=== PATIENT | female | born 1965 | race Caucasian/White ===

== ENCOUNTER → 2018-08-16 15:43 | Outpatient (CLI) | payer BC, SELFPAY ==
--- NOTE | 2018-08-16 15:49 | MM_ITS ---
MM Dig screening mamm BI w/CAD ORDERING PHYSICIAN : Artis Estrada MD PATIENT AGE: 53 years GENDER: Female COMPARISON: July 2016, July 2017, July 2015 & . INDICATION: ITS.REASON: SCREENING no hormones no new complaints Family history. Mother with breast cancer age 60. Maternal aunt and paternal aunt age 60 with breast cancer TECHNIQUE: Standard CC and MLO images were obtained. R2 CAD reviewed. FINDINGS: Dense breast pattern bilaterally-decreases sensitivity of mammography. Ultrasound can be useful compliment or augment mammography in breast of increased density.. RIGHT BREAST: Focal slight denser area noted towards upper-outer quadrant, most likely is due to summation shadow.... This area however would benefit from spot view and ultrasound to further evaluate, particularly in view of the patient's positive family history LEFT BREAST: A stable dense appearance to the breast with no new areas of concern follow-up in one year adequate on left IMPRESSION: ...... 1 Right Breast. To Be cautious suggest Additional spot views and ultrasound upper-outer quadrant right breast.. Slight asymmetric density here by far most likely merely summation shadow but would benefit to further evaluate to be cautious,-particularly in view of positive family history 2. Stable LEFT mammogram follow-up in one year BI-RADS Category: 0 Need Additional Imaging Evaluation RECOMMENDED FOLLOW-UP: IMM - IMMEDIATE FOLLOW-UP RECOMMENDED Right breast spot views and ultrasound (A letter has been sent to the patient regarding results of the study.)
== END ==
PROVIDERS: PCP Family Medicine; Visit Provider Family Medicine
DX: Z12.31 Encounter for screening mammogram for malignant neoplasm of breast (principal)
CPT/HCPCS: 77067

== ENCOUNTER → 2018-09-25 14:11 | Outpatient (CLI) | payer BC, SELFPAY ==
--- NOTE | 2018-09-25 14:19 | MM_ITS ---
MM Dig mamm DX unilat RT CAD, US breast RT complete INDICATION: Follow-up abnormal mammogram ORDERING PHYSICIAN: Artis Estrada MD PATIENT AGE: 53 years COMPARISON: 08/16/2018, 08/07/2017 TECHNIQUE: Problem-solving views of the right breast along with right breast ultrasound FINDINGS: There is dense fibroglandular tissue which decreases sensitivity of mammography. The asymmetric density noted on the screening mammogram is once again noted but no discrete mass is apparent. No malignant appearing calcifications or malignant appearing mass. Right breast ultrasound: There is an 11 x 8 mm cyst in the outer aspect of the right breast at 10:00. An additional 5 mm cyst is present at this region as well. These could be the cause of the asymmetric density on the mammogram. IMPRESSION: There are 2 cysts in the outer aspect of the right breast at 10:00 which may be causing the mammographic asymmetry. No malignant appearing mass is evident. Suggest 6 month mammographic and sonographic follow-up due to the asymmetry and dense breast tissue BI-RADS Category: 3 Probably Benign Finding Short Term Follow-up RECOMMENDED FOLLOW-UP: 6M - 6 MONTH FOLLOW-UP (A letter has been sent to the patient regarding results of the study.)
== END ==
PROVIDERS: PCP Family Medicine; Visit Provider Family Medicine
DX: R92.8 Other abnormal and inconclusive findings on diagnostic imaging of breast (principal)
CPT/HCPCS: 76641; 77065

== ENCOUNTER → 2019-03-13 12:39 | Outpatient (CLI) | payer BC, SELFPAY ==
--- NOTE | 2019-03-13 12:44 | MM_ITS ---
MM Dig mamm DX unilat RT CAD COMPARISON: Digital right mammogram with CAD 09/25/2018 INDICATION: 6 month follow-up of possible asymmetric density TECHNIQUE: Standard MLO and CC views were obtained along with spot compression MLO and CC views and exaggerated CC view FINDINGS: Prominent heterogenic fibroglandular densities are seen throughout the breast. The possible asymmetric density seen on the previous study is less prominent on today's study in this lady who has a rather dense heterogenic parenchyma. There is no persistent or suspicious asymmetric density seen at this time. Ultrasound performed the same date showed 2 benign-appearing cyst similar to the ultrasound in September. IMPRESSION: Stable exam with heterogenic breast density and no suspicious lesion seen recommend the patient return to normal yearly screening BI-RADS Category: 1 Negative RECOMMENDED FOLLOW-UP: 6M - 6 MONTH FOLLOW-UP to return to normal yearly schedule (A letter has been sent to the patient regarding results of the study.)
--- NOTE | 2019-03-13 14:00 | US_ITS ---
US breast RT complete COMPARISON: Ultrasound right breast 09/25/2018 HISTORY: Follow-up benign-appearing cystic lesion seen on previous ultrasound exam TECHNIQUE: Targeted ultrasound survey of the breast FINDINGS: Again noted is the somewhat oval hypoechoic lesion at the 10:00 position measuring 1.1 x 0.3 x 0.6 cm. There is a second similar-appearing cystic lesion at the 10:00 position measuring 0.6 x 0.3 0.6 semiurgent. The remainder of the breast parenchyma shows rather heterogenic echogenicity. There are 2 normal-appearing nodes in the axilla. IMPRESSION: 2 benign-appearing cystic lesions 10:00 position and no additional evaluation is indicated and recommend patient continued yearly screening mammography.
== END ==
PROVIDERS: PCP Family Medicine; Visit Provider Family Medicine
DX: R92.8 Other abnormal and inconclusive findings on diagnostic imaging of breast (principal)
CPT/HCPCS: 19285; 76641; 77065

== ENCOUNTER → 2019-06-12 13:34 | Outpatient (CLI) | payer BC, SELFPAY ==
--- NOTE | 2019-06-12 13:36 | CA_ITS ---
APPROVED REPORT EXAM: Comprehensive 2D, Doppler, and color-flow Echocardiogram Tool Maker: Alee Ardon CRT Ht: 5 ft 8 in Wt: 145lbs BSA: 1.78 BP: 128/68 mmHg Indications: Pulmonary Hypertension, Mitral Valve Prolapse, Palpitations, Hyperlipidemia, Hypertension/HDD 2D Dimensions LVOT 1.90 cm (M/F) 1.5-2.5 M-Mode Dimensions RVDd 2.80 cm (0.9-2.6) LA Diam 3.00 cm (1.9-4.0) LVDd 4.50 cm (3.5-5.7) Ao Diam 2.90 cm (2.0-3.7) LVDs 3.20 cm (3.5-5.7) AV Cusp 1.80 cm (1.5-2.6) IVSd 0.80 cm (0.6-1.1) PWd 0.60 cm (0.6-1.1) EF (Teich) 55.60% FS 28.90% EDV (Teich) 92.40 mL ESV (Teich) 41.00 mL LV Diastology E/A Ratio 1.10 MED E' 9.36 (< 7 cm/sec) E'/MED E' Ratio 10.50 (>14) LAT E' 12.70 (<10 cm/sec) E/LAT E' Ratio 7.70 (>14) Aortic Valve AoV Peak Cornelio. 159.00 (50-130 cm/s) AO Peak GR. 10.00 mmHg Mitral Valve MV E Max Cornelio. 98.20 (40-130 cm/s) MV A Velocity 85.90 (40-130 cm/s) E/A Ratio 1.10 Pulmonary Valve PA Accel Time 158.00 (>120 msec) Tricuspid Valve TR P. Velocity 301.00 cm/s RAP Estimate 10.00 mmHg RVSP 46.00 mmHg Left Ventricle Left atrium is mildly enlarged, left ventricle is normal size, mild concentric left ventricular hypertrophy, visually estimated ejection fraction 50% with no regional wall motion abnormality, grade 1 diastolic dysfunction seen without tissue Doppler evidence of raise left atrial pressure. Right Ventricle Right atrium and right ventricular normal size and contractility. Aortic Valve Aortic valve is minimally thickened and fibrosed. There is no aortic stenosis aortic insufficiency. Mitral Valve Mitral valve leaflets are minimally thickened and fibrosed. There is no mitral stenosis, there is mild mitral regurgitation. Tricuspid Valve Tricuspid valve is grossly normal, there is mild tricuspid regurgitation, tricuspid regurgitation jet velocity is inadequate for titration of the right ventricular systolic pressure. Pulmonic Valve Pulmonic valve is poorly visualized. Great Vessels Aortic root is normal size. Pericardium No significant pericardial effusion noted. Conclusion 1. Mildly enlarged left atrium, normal left ventricular size, mild concentric left ventricular hypertrophy, visually estimated ejection fraction of 50% with no regional wall motion abnormality. Grade 1 diastolic dysfunction seen without tissue Doppler evidence of raise left atrial pressure. 2. Thickened and calcified aortic valve without aortic stenosis aortic insufficiency. 3. The mitral valve leaflets are minimally thickened and calcified, there is no mitral stenosis, there is mild mitral regurgitation. 4. Mild tricuspid regurgitation. 5. No significant pericardial effusion noted. Electronically signed by : Anselmo August, 06/14/2019 14:09:26
== END ==
PROVIDERS: PCP Family Medicine; Visit Provider Urology
DX: I27.20 Pulmonary hypertension, unspecified (principal); I34.0 Nonrheumatic mitral (valve) insufficiency; I34.1 Nonrheumatic mitral (valve) prolapse; R00.2 Palpitations
CPT/HCPCS: 93306

== ENCOUNTER → 2019-08-03 14:07 | Outpatient (CLI) | payer BC, SELFPAY | PROVIDERS: Visit Provider Family Medicine | DX: N30.00 Acute cystitis without hematuria (principal) | CPT/HCPCS: 87086 ==

== ENCOUNTER → 2019-09-03 15:48 | Outpatient (CLI) | payer BC, SELFPAY ==
--- NOTE | 2019-09-03 | MM_ITS ---
PROCEDURE: MM DIG SCREENING MAMM BI W/CAD CLINICAL INDICATION: SCREENING There is a history of breast cancer patient's mother diagnosed after menopause and the patient's maternal aunt and paternal aunt both diagnosed after menopause. COMPARISON: [facility] MM Dig screening mamm BI w/CAD from 08/16/2018 DXRT MM Dig mamm DX unilat RT CAD from 09/25/2018 DIG MAMM-DX UNI-RT from 03/13/2019 TECHNIQUE: Standard CC and MLO images were obtained. R2 CAD reviewed. FINDINGS: Prominent diffuse heterogenic fibroglandular densities are seen breast somewhat lessening the sensitivity of mammography. Findings are fairly symmetrical except for slightly increased glandular elements upper-outer quadrant right breast. There is no new or suspicious lesion in either breast and no suspicious microcalcifications. IMPRESSION: Diffusely dense parenchymal pattern with no suspicious lesions seen BI-RAD Category: 1 Negative FOLLOW-UP: 1YR 1 Year Follow-up (A letter has been sent to the patient regarding results of the study.) Dictated by: Dr. Sajan Diaz MD 09/05/2019 11:[address] Sajan Diaz MD in [place] 09/05/2019 11:22
== END ==
PROVIDERS: PCP Family Medicine; Visit Provider Family Medicine
DX: Z12.31 Encounter for screening mammogram for malignant neoplasm of breast (principal)
CPT/HCPCS: 77067

== ENCOUNTER → 2020-06-03 09:23 | Outpatient (CLI) | payer BC, SELFPAY ==
[2020-06-03 10:33] LABS: Alanine Aminotransferase 18 U/L (12-78); Albumin Level 4.3 g/dl (3.5-5.0); Alkaline Phosphatase 89 U/L (38-126); Aspartate Amino Transferase 23 U/L (14-36); Bilirubin,Direct 0.1 mg/dl (0.0-0.4); Bilirubin,Indirect 0.3 mg/dL (0.0-0.9); Bilirubin,Total 0.4 mg/dl (0.2-1.3); Bilirubin,Unconjugated 0.3 mg/dL (0.0-1.1); Chol/HDL Ratio 4.1 (1-3.5); Cholesterol 173 mg/dl (140-200); HDL Cholesterol 42 mg/dl (40-60); Total Protein,Serum 6.4 g/dl (6.3-8.2); Triglycerides 240 mg/dl (30-150); VLDL Cholesterol 48 mg/dL (0-40)
[2020-06-03 10:44] LABS: Direct LDL Cholesterol 104.05 mg/dL (100-129)
== END ==
PROVIDERS: Visit Provider Urology
DX: R00.2 Palpitations (principal); I10 Essential (primary) hypertension; I27.20 Pulmonary hypertension, unspecified; I34.0 Nonrheumatic mitral (valve) insufficiency
CPT/HCPCS: 36415; 80061; 80076

== ENCOUNTER → 2020-06-09 14:34 | Outpatient (CLI) | payer BC, SELFPAY ==
--- NOTE | 2020-06-09 14:37 | CA_ITS ---
APPROVED REPORT EXAM: Comprehensive 2D, Doppler, and color-flow Echocardiogram Senior Statistical Programmer: Concetta Bosch RVT Ht: 5 ft 8 in Wt: 148lbs BSA: 1.80 BP: 130/61 mmHg Indications: MR,PHTN,MVP,HTN,SMOKER,HLD 2D Dimensions LVOT 1.77 cm (M/F) 1.5-2.5 M-Mode Dimensions RVDd 1.75 cm (0.9-2.6) LVDd 3.58 cm (3.5-5.7) LVDs 2.36 cm (3.5-5.7) IVSd 0.89 cm (0.6-1.1) PWd 0.72 cm (0.6-1.1) EF (Teich) 64.10% FS 34.10% EDV (Teich) 53.70 mL ESV (Teich) 19.30 mL LV Diastology E/A Ratio 0.80 Mitral Valve MV A Velocity 77.00 (40-130 cm/s) Left Ventricle Left atrium is normal size, left ventricle is normal size, there is no segmental wall motion abnormality, visually estimated ejection fraction 55%. There is no concentric left ventricular hypertrophy, diastolic parameters are inconclusive. Right Ventricle Right atrium and right ventricular normal size and contractility. Aortic Valve Aortic valve is minimally thickened and fibrosed, there is no aortic stenosis or aortic insufficiency. Mitral Valve Anterior mitral leaflets are minimally thickened, there is mild prolapse of the anterior mitral leaflet, there is no mitral stenosis, there is trace mitral regurgitation. Tricuspid Valve Tricuspid valve grossly normal, there is mild tricuspid regurgitation, tricuspid regurgitation jet velocity is inadequate for calculation of the right ventricular systolic pressure. Pulmonic Valve Pulmonic valve is poorly visualized. Great Vessels Aortic root is normal size. Pericardium No significant pericardial effusion noted. Conclusion 1. Normal left ventricular size, visually estimated ejection fraction 55% with no regional wall motion abnormality, diastolic parameters are inconclusive. 2. Thickened and calcified anterior mitral leaflet with mild prolapse, there is no mitral stenosis, there is trace mitral regurgitation. 3. Mild tricuspid regurgitation. 4. No significant pericardial effusion noted. Electronically signed by : Anselmo August, 06/09/2020 20:39:49
== END ==
PROVIDERS: PCP Family Medicine; Visit Provider Urology
DX: R00.2 Palpitations (principal); I10 Essential (primary) hypertension; I27.20 Pulmonary hypertension, unspecified; I34.0 Nonrheumatic mitral (valve) insufficiency
CPT/HCPCS: 93306

== ENCOUNTER → 2020-09-07 14:41 | Outpatient (CLI) | payer BC, SELFPAY ==
--- NOTE | 2020-09-07 14:48 | MM_ITS ---
PROCEDURE: MM DIG SCREENING MAMM BI W/CAD Digital Breast Tomosynthesis Included CLINICAL INDICATION: SCREENING There is a history of breast cancer in the patient's mother, maternal aunt and paternal all diagnosed after menopause. COMPARISON: MG DXRT MM Dig mamm DX unilat RT CAD from 09/25/2018 MG DIG MAMM-DX UNI-RT from 03/13/2019 MG MM DIG SCREENING MAMM BI W/CAD from 09/03/2019 TECHNIQUE: Standard CC and MLO images and 3D Tomosynthesis was obtained. R2 CAD reviewed. FINDINGS: Diffuse somewhat heterogenic fibroglandular densities are seen in both breasts. The findings are fairly symmetrical bilaterally. There are no CAD markings. There has been some mild fatty replacement of breast parenchyma when compared to recent studies. There is no new or suspicious lesion in either breast and no suspicious microcalcifications. IMPRESSION: Moderately dense breast parenchyma with no suspicious lesions seen BI-RAD Category: 1 Negative FOLLOW-UP: 1YR 1 Year Follow-up (A letter has been sent to the patient regarding results of the study.) Dictated by: Dr. Sajan Diaz MD 09/09/2020 12:32 Dr. Sajan Diaz MD in [place] 09/09/2020 12:32
== END ==
PROVIDERS: PCP Family Medicine; Visit Provider Family Medicine
DX: Z12.31 Encounter for screening mammogram for malignant neoplasm of breast (principal)
CPT/HCPCS: 77063; 77067

== ENCOUNTER → 2020-11-19 14:49 | Outpatient (CLI) | payer BC, SELFPAY ==
--- NOTE | 2020-11-19 14:56 | XR_ITS ---
PROCEDURE: XR WRIST LT MIN 3V CLINICAL INDICATION: LT WRIST PAIN COMPARISON: No exams were available for comparison FINDINGS: There is a curvilinear lucency through the lateral aspect of the distal radius from the articular surface to the base of the radial styloid process consistent with a nondisplaced fracture. The joint spaces are well-preserved. No significant degenerative/arthritic changes. No erosive changes evident. Other findings:None. IMPRESSION: Nondisplaced lateral distal radial fracture Dictated by: Bear Chinchilla MD 11/19/2020 17:01 Bear Chinchilla MD in [place] 11/19/2020 17:01
== END ==
PROVIDERS: PCP Family Medicine; Visit Provider Family Medicine
DX: M25.532 Pain in left wrist (principal)
CPT/HCPCS: 73110

== ENCOUNTER → 2020-12-04 13:16 | Outpatient (CLI) | payer BC, SELFPAY ==
--- NOTE | 2020-12-04 13:20 | XR_ITS ---
PROCEDURE: XR WRIST LT MIN 3V CLINICAL INDICATION: distal radius fracture COMPARISON: CR XR WRIST LT MIN 3V from 11/19/2020 FINDINGS: Faint curvilinear lucency at the base of the radial styloid process is somewhat less apparent and may represent healing of the fracture.. No other significant anomalies are evident. IMPRESSION: Fracture at the base of the radial styloid process is somewhat less apparent suggesting healing Dictated by: Bear Chinchilla MD 12/04/2020 13:55 Bear Chinchilla MD in [place] 12/04/2020 13:55
== END ==
PROVIDERS: PCP Family Medicine; Visit Provider Orthopaedic Surgery
DX: S62.102A Fracture of unspecified carpal bone, left wrist, initial encounter for closed fracture (principal)
CPT/HCPCS: 73110

== ENCOUNTER → 2021-06-21 15:15 | Outpatient (CLI) | payer BC, SELFPAY ==
--- NOTE | 2021-06-21 15:17 | CA_ITS ---
APPROVED REPORT EXAM: Comprehensive 2D, Doppler, and color-flow Echocardiogram Comic Book Artist: Kathy Redman RDCS Ht: 5 ft 8 in Wt: 145lbs BSA: 1.78 BP: 117/75 mmHg Indications: MVP M-Mode Dimensions RVDd 2.36 cm (0.9-2.6) LVDd 4.46 cm (3.5-5.7) LVDs 3.19 cm (3.5-5.7) IVSd 0.70 cm (0.6-1.1) PWd 0.74 cm (0.6-1.1) EF (Teich) 55.10% FS 28.50% EDV (Teich) 90.50 mL TAPSE 1.66 (<1.7) ESV (Teich) 40.60 mL LV Diastology E Decel Time 183.00 (160-240 msec) E/A Ratio 1.1 MED E' 8.40 (< 7 cm/sec) E'/MED E' Ratio 7.76 (>14) Mitral Valve MV E Max Cornelio. 65.00 (40-130 cm/s) MV A Velocity 61.00 (40-130 cm/s) E/A Ratio 1.07 MV Decel. Time 183.00 (160-240 ms) MV PHT 54.00 ms Left Ventricle Left atrium is normal size, left ventricle is normal size, there is no concentric left ventricular hypertrophy, visually estimated ejection fraction 55% with no regional wall motion abnormality. Diastolic parameters are within normal range. Right Ventricle Right atrium and right ventricle are normal size and contractility. Aortic Valve Aortic valve is grossly normal, there is no aortic stenosis or aortic insufficiency. Mitral Valve Mitral valve leaflets are minimally thickened, there is mild buckling of the anterior mitral leaflet in systole, there is no obvious prolapse seen. There is trace mitral regurgitation. Tricuspid Valve Tricuspid grossly normal, there is trace tricuspid regurgitation, tricuspid regurgitation jet velocity is inadequate for calculation of the right ventricular systolic pressure. Pulmonic Valve Pulmonic valve is poorly visualized. Great Vessels Aortic root is normal size. Inferior vena cava is normal size with normal inspiratory collapse. Pericardium No significant pericardial effusion noted. Conclusion 1. Normal left ventricular size, preserved left ventricular systolic function, visually estimated ejection fraction 55% with no regional wall motion abnormality. 2. Mild thickening and focal buckling of the anterior mitral leaflet without significant prolapse, there is no mitral stenosis, there is trace mitral regurgitation. 3. No significant pericardial effusion noted. 4. Inferior vena cava is normal size with normal inspiratory collapse. Electronically signed by : Anselmo August MD 06/21/2021 19:26:09
== END ==
PROVIDERS: PCP Family Medicine; Visit Provider Nurse Practitioner Family
DX: I27.20 Pulmonary hypertension, unspecified (principal); I34.0 Nonrheumatic mitral (valve) insufficiency; I34.1 Nonrheumatic mitral (valve) prolapse; R00.2 Palpitations
CPT/HCPCS: 93306

== ENCOUNTER → 2021-09-14 09:45 | Outpatient (CLI) | payer BC, SELFPAY ==
--- NOTE | 2021-09-14 09:47 | MM_ITS ---
PROCEDURE INFORMATION: Exam: MG Bilateral Screening 3D Mammography Exam date and time: 09/14/2021 9:47 AM Age: 56 years old Clinical indication: Screening mammogram TECHNIQUE: Imaging protocol: Bilateral screening tomosynthesis and 2D mammography including computer-aided detection (CAD) when performed. COMPARISON: 1. MG MM DIG SCREENING MAMM BI W/CAD 09/07/2020 3:00 PM 2. MG MM DIG SCREENING MAMM BI W/CAD 09/03/2019 4:03 PM 3. MG DIG MAMM-DX UNI-RT 03/13/2019 1:14 PM 4. MG DXRT MM Dig mamm DX unilat RT CAD 09/25/2018 2:32 PM FINDINGS: MAMMOGRAPHY: Breast composition: The breast tissue is heterogeneously dense, which may obscure small masses. Mass: None. Architectural distortion: No new or suspicious architectural distortion. Calcifications: No new or suspicious calcifications are present Asymmetric density: No new or suspicious asymmetric density is present Skin thickening: None. Axillary adenopathy: None. IMPRESSION: No mammographic evidence of malignancy. Recommend annual screening mammography unless otherwise clinically indicated. ASSESSMENT: BI-RADS category 1: Negative
== END ==
PROVIDERS: PCP Family Medicine; Visit Provider Family Medicine
DX: Z12.31 Encounter for screening mammogram for malignant neoplasm of breast (principal)
CPT/HCPCS: 77063; 77067

== ENCOUNTER → 2021-12-10 13:01 | Outpatient (CLI) | payer BC, SELFPAY ==
--- NOTE | 2021-12-10 13:04 | XR_ITS ---
FINAL REPORT CLINICAL HISTORY: LT wrist pain COMPARISON: December 04, 2020 FINDINGS: LEFT WRIST Three views demonstrate no acute fracture or dislocation. The visualized joint spaces are normally aligned. The soft tissues are unremarkable. IMPRESSION: No acute bony abnormality. Reviewed, Interpreted and Dictated by Larry Tyler MD Transcribed by Kristine Flores Authenticated by Larry Tyler MD on 12/10/2021 01:50:16 PM [facility]
== END ==
PROVIDERS: PCP Family Medicine; Visit Provider Orthopaedic Surgery
DX: M25.532 Pain in left wrist (principal)
CPT/HCPCS: 73110

== ENCOUNTER 2022-06-08 10:12 | Emergency (ER) | payer BC, SELFPAY ==
[2022-06-08 11:00] VITALS: BP 113/66; PULSE 71; RESP 18; TEMP 36.4; O2SAT 99; BMI 21.9
[2022-06-08 11:24] VITALS: BP 113/66; PULSE 71; RESP 18; TEMP 36.4; O2SAT 99
--- NOTE | 2022-06-08 11:28 | EXP.UTC ---
Discharge Plan Disposition Patient Disposition: Home, Self-Care Condition: Good Prescriptions Prescriptions: No Action aspirin [Adult Low Dose Aspirin] 81 mg tablet,delayed release (DR/EC) 81 mg PO DAILY multivitamin tablet 1 tab PO DAILY atenolol 25 mg tablet See Rx Instructions .ROUTE .COMPLEX Qty: 30 5RF Dose Instruction: TAKE ONE TABLET BY MOUTH EVERY DAY Rx Instructions: TAKE ONE TABLET BY MOUTH EVERY DAY Referrals Follow up/Referrals: Artis Estrada MD [Primary Care Provider] - See instructions Activity Restrictions/Add. Instructions Additional Instructions/Restrictions: *Monitor Temp, Over the counter Motrin or Tylenol as directed/as needed Tylenol every 4 hours and Motrin every 6 hours (as long as your family doctor has told you that you can take it) for fever or pain. and straight to ER if unable to lower temp less than 101.0 after medication given *Warm salt water gargles may help to soothe the throat *Throat Lozenges? *Warm fluids like tea with honey may help to soothe the throat? *Sleep elevated *Humidifier/Vaporizer Follow up IMMEDIATELY for new or worsening symptoms or no Noticeable improvement over the next 48-72 hours. 911 for difficulty breathing or swallowing You were tested for today for COVID19 your test result should be back in the next 24-48 hours, you may check your results on the [facility] My Health Portal Make sure to take your Vitamins Vit. C Vit D and Zinc if you can take them Clinical Impressions Clinical Impression: Encounter for laboratory testing for COVID-19 virus Stand Alone Forms Stand Alone Forms: Work/School Release Instructions Patient Instructions: Coronavirus Disease 2019, Preventing the Spread of Coronavirus Discharge Instructions Discharge ED Provider: Colleen Lawson [facility] [place] HPI General Stated complaint: Covid test, covid exposure, CHILD, Congestion Mode of Arrival: Ambulatory Source of Information: Patient Limitations: No Limitations Time Seen by Provider: 06/08/22 11:28 Description of Symptoms (Recalled from Triage Doc. by RN): PATIENT C/O CONGESTION X 2 DAYS. HER RECENTLY TESTED POSITIVE FOR COVID WITH HOME TEST HEENT Symptoms (Recalled from RN notes): Yes Resp Symptoms (Recalled from RN notes): No Skin Symptoms (Recalled from RN notes): No MS Symptoms (Recalled from RN notes): No Functional Status (Recalled from RN notes): WNL History of Present Illness Provider Complaint: Patient states that she has been having nasal congestion for the last couple of days States that did a home COVID test earlier and it was positive so she came in to get tested Related Data Home Medications Medication Instructions Recorded Confirmed aspirin 81 mg tablet,delayed 81 mg PO DAILY 06/05/18 12/10/21 release (Adult Low Dose Aspirin) multivitamin 1 tab PO DAILY 06/05/18 12/10/21 Previous Rx's Medication Instructions Recorded atenolol 25 mg tablet See Rx Instructions .Route 03/08/22 .COMPLEX #30 tabs Allergies Allergy/AdvReac Type Severity Reaction Status Date / Time No Known Allergies Allergy Verified 12/10/21 14:30 Worker's Comp Is this a Worker's Comp case?: No [facility] Medical History (Updated 06/08/22 @ 11:31 by Colleen Lawson APRN) Hypertension Mitral valve prolapse Mitral valve regurgitation Palpitations Surgical History (Updated 06/08/22 @ 11:15 by Robyn Webb RN) History of appendectomy History of cholecystectomy History of tonsillectomy Social History (Updated 06/08/22 @ 11:15 by Robyn Webb RN) Smoking Status: Current every day smoker alcohol intake: current substance use type: denies use current occupational status: employed Travel in the last 8 weeks: None ROS Obtained: Yes All systems reviewed & no additional complaints except as documented and Yes Systems reviewed as appropriate & no additional complaints except as documented ENT Ea
== END 2022-06-08 11:36 | disposition home or self-care (01) ==
PROVIDERS: Emergency Provider Nurse Practitioner; PCP Family Medicine
DX: U07.1 COVID-19 (principal)
CPT/HCPCS: 99212; C9803; G0463; U0003; U0005

== ENCOUNTER → 2022-09-15 09:43 | Outpatient (CLI) | payer BC, SELFPAY ==
--- NOTE | 2022-09-15 09:45 | MM_ITS ---
PROCEDURE INFORMATION: Exam: MG Bilateral Screening 3D Mammography Exam date and time: 09/15/2022 9:44 AM Age: 57 years old Clinical indication: Screening examination TECHNIQUE: Imaging protocol: Bilateral Screening tomosynthesis and 2D mammography including computer-aided detection (CAD) when performed. COMPARISON: 1. MG MM DIG SCREENING MAMM BI W/CAD 09/14/2021 9:55 AM 2. MG MM DIG SCREENING MAMM BI W/CAD 09/07/2020 3:00 PM FINDINGS: MAMMOGRAPHY: Breast composition: The breasts are heterogeneously dense, which may obscure small masses. Mass: None. Architectural distortion: None. Calcifications: No suspicious calcifications. Asymmetric density: None. Skin thickening: None. Axillary adenopathy: None. IMPRESSION: No mammographic evidence of malignancy. Annual screening is recommended unless otherwise clinically indicated. ASSESSMENT: BI-RADS Category 1: Negative
== END ==
PROVIDERS: PCP Family Medicine; Visit Provider Family Medicine
DX: Z12.31 Encounter for screening mammogram for malignant neoplasm of breast (principal)
CPT/HCPCS: 77063; 77067

== ENCOUNTER 2022-12-26 17:57 | Emergency (ER) | payer BC, SELFPAY ==
[2022-12-26] VITALS (10 sets, daily range): BP systolic 108–173; BP diastolic 66–94; PULSE 70–84; RESP 12–22; TEMP 36.1–36.8; O2SAT 96–98; BMI 21.2
--- NOTE | 2022-12-26 17:57 | ECG_ITS ---
APPROVED REPORT Exam: Resting ECG HR:67 bpm ECG Measurements Heart Rate 67 AXES QRSd 87 QRS 81 QT 380 T 78 QTc 396 Conclusion NSR NORMAL ECG UNCONFIRMED REPORT Electronically signed by : Morales Gordon MD 12/27/2022 20:42:16
--- NOTE | 2022-12-26 18:01 | HMH.EDGENADL ---
Discharge Plan Disposition Chief Complaint: Chest Pain Prescriptions Prescriptions: No Action multivitamin Tablet 1 tab PO DAILY atenolol 25 mg tablet 25 mg PO DAILY Label Comments: TAKE ONE TABLET BY MOUTH EVERY DAY aspirin 81 mg Tablet 81 mg PO DAILY Discharge ED Provider: Caroline Villareal General Adult HPI General Chief complaint: Chest Pain Stated complaint: chest pain Time Seen by Provider: 12/26/22 18:01 History of Present Illness HPI narrative: Patient is a 57-year-old female presenting with intermittent chest pain since Monday. She has a history of extensive smoking but no history of coronary artery disease had a stress test more than a few years ago was never had a left heart cath but is followed by Dr. Roque. She does have a history of mitral valve prolapse but no other heart or lung pathology that she is aware of. She states that she has had intermittent chest pain only lasting a few minutes its not exertional in nature not associate with dyspnea not associated with diaphoresis nausea or radiation. She states that its been completely random but has been happening more frequently since yesterday and today became more constant prompting a visit to Dr. Larsen's office. She states she sat Dr. Larsen's waiting room for 2 hours and then was sent to the emergency department upon the discovery that she had chest pain. She currently denies any chest pain or any symptoms at the moment. No cough fevers chills or other symptoms associate with this. No hemoptysis lower extremity swelling history of DVT or PE. Related Data Home Medications Medication Instructions Recorded Confirmed aspirin 81 mg tablet 81 mg PO DAILY Heart 12/26/22 12/26/22 atenolol 25 mg tablet 25 mg PO DAILY High blood pressure 12/26/22 12/26/22 multivitamin 1 tab PO DAILY Supplement 12/26/22 12/26/22 Allergies Allergy/AdvReac Type Severity Reaction Status Date / Time No Known Allergies Allergy Verified 06/22/22 08:38 [facility] Disclaimer: The information contained in this section may have been updated after the patient was seen, as this information can be updated by other users. Medical History Hypertension Mitral valve prolapse Mitral valve regurgitation Palpitations Surgical History History of appendectomy History of cholecystectomy History of tonsillectomy Social History Smoking Status: Current every day smoker alcohol intake: current substance use type: denies use current occupational status: employed Travel in the last 8 weeks: None ROS Obtained: Yes All systems reviewed & no additional complaints except as documented Physical Exam General General appearance: alert Respiratory Respiratory exam: Present normal lung sounds bilaterally; Absent respiratory distress, wheezes, stridor or accessory muscle use Cardiovascular Cardiovascular exam: Present regular rate; Absent tachycardia Neurological Exam Neurological exam: Present alert and oriented X3 Medical Decision Making Isaiah Inquiry Pt receiving controlled substance: No Vital Signs: 12/26/22 17:59 12/26/22 18:09 Temperature 97.8 F Temperature Source Oral Pulse Rate 72 Pulse Rate [Left] 72 Respiratory Rate 17 Blood Pressure [Right Arm] 173/94 H Blood Pressure Mean [Right Arm] 120 Blood Pressure Source [Right Arm] Automatic Cuff Blood Pressure Position [Right Arm] Supine 02 Sat by Pulse Oximetry 97 Oxygen Delivery Method Room Air Lab Data Lab results reviewed: Yes I reviewed the patient's lab results. Lab Results 12/26/22 18:00: WBC 9.9, RBC 4.82, Hgb 14.4, Hct 44.2, MCV 91.7, MCH 29.9, MCHC 32.6, RDW 13.4, Plt Count 277, MPV 7.5, Neut % (Auto) 64.3, Lymph % (Auto) 27.5, Cooke % (Auto) 5.9, Eos % (Auto) 1.6, Baso % (Auto) 0.6, Neut # (Auto) 6.
--- NOTE | 2022-12-26 18:02 | XR_ITS ---
PROCEDURE INFORMATION: Exam: XR Chest Exam date and time: 12/26/2022 6:22 PM Age: 57 years old Clinical indication: Dyspnea TECHNIQUE: Imaging protocol: Radiologic exam of the chest. Views: 1 view. COMPARISON: CR CXR CHEST(2 VIEWS-NOT PORTABLE) 12/02/2016 2:02 PM FINDINGS: Lungs: Unremarkable. No consolidation. Pleural spaces: Unremarkable. No pleural effusion. No pneumothorax. Heart/Mediastinum: Unremarkable. No cardiomegaly. Bones/joints: There is stable moderate dextroscoliosis of the thoracic spine. Bones are otherwise unremarkable. IMPRESSION: No acute disease
[2022-12-26 18:22] LABS: Basophils # 0.1 K/mm3 (0-0.2); Basophils % 0.6 % (0.1-2.0); Eosinophils # 0.2 K/mm3 (0.0-0.4); Eosinophils % 1.6 % (0.1-12.0); Hematocrit 44.2 % (37.0-47.0); Hemoglobin 14.4 g/dL (12.2-16.2); Lymphocytes # 2.7 K/mm3 (0.7-4.5); Lymphocytes % 27.5 % (10-50); Mean Corpuscular HGB Conc 32.6 g/dL (31.8-35.4); Mean Corpuscular Hemoglobin 29.9 pg (27.0-31.2); Mean Corpuscular Volume 91.7 fl (81-99); Mean Platelet Volume 7.5 fl (7.4-10.4); Monocytes # 0.6 K/mm3 (0.1-1.0); Monocytes % 5.9 % (1.7-9.3); Neutrophils # 6.3 K/mm3 (1.8-7.8); Neutrophils % 64.3 % (37.0-80.0); Platelet Count 277 K/mm3 (142-424); Red Blood Count 4.82 M/mm3 (4.20-5.40); Red Cell Distribution Width 13.4 % (11.5-17.5); White Blood Count 9.9 K/mm3 (4.8-10.8)
[2022-12-26 18:26] LABS: Chloride 106 mmol/L (98-107); Potassium 4.1 mmoL/L (3.5-5.1); Sodium 141 mmol/L (136-145)
[2022-12-26 18:29] LABS: Alanine Aminotransferase 22 U/L (12-78); Albumin Level 4.5 g/dl (3.5-5.0); Albumin/Globulin Ratio 1.7 (1.1-1.8); Alkaline Phosphatase 95 U/L (38-126); Anion Gap 9.1 mEq/L (5-15); Aspartate Amino Transferase 28 U/L (14-36); Bilirubin,Total 0.3 mg/dl (0.2-1.3); Blood Urea Nitrogen 13 mg/dl (7-17); Carbon Dioxide 30 mmol/L (22.0-30.0); Creatinine Clearance Estimated 106 mL/min (50-200); Estimated Glomerular Filt Rate 104 ml/min (>60); GFR (African American) 126 ML/MIN (>60); Globulin 2.6 g/dL (1.3-3.2); Total Protein,Serum 7.1 g/dl (6.3-8.2)
[2022-12-26 18:30] LABS: Calcium 9.7 mg/dl (8.4-10.2); Glucose 100 mg/dl (74-100)
[2022-12-26 18:41] LABS: D-Dimer 0.74 ug/mL (0.0-0.5)
[2022-12-26 18:44] LABS: Troponin I < 0.01 ng/ml (0.00-0.034)
--- NOTE | 2022-12-26 20:52 | PC.NURSE ---
Rounded on patient. patient in room, no needs voiced at this time.
[2022-12-26 21:39] LABS: Troponin I < 0.01 ng/ml (0.00-0.034)
--- NOTE | 2022-12-26 21:41 | PC.NURSE ---
2nd troponin is back and MD aware, states he will see them shortly
== END 2022-12-26 21:51 | disposition home or self-care (01) ==
PROVIDERS: Emergency Provider Student in an Organized Health Care Education/Training Program; PCP Family Medicine
DX: R07.9 Chest pain, unspecified (principal); F17.200 Nicotine dependence, unspecified, uncomplicated
CPT/HCPCS: 71045; 80053; 84484; 85025; 85378; 93005; 99285

== ENCOUNTER → 2022-12-27 14:08 | Outpatient (CLI) | payer BC, SELFPAY ==
--- NOTE | 2022-12-27 14:18 | CT_ITS ---
FINAL REPORT CLINICAL HISTORY: elevated d dimer, cp FINDINGS: Thin section axial CT images of the chest were obtained with contrast. 3D reformatted images were also obtained. This study was performed with techniques to keep radiation doses as low as reasonably achievable (ALARA). Individualized dose reduction techniques using automated exposure control or adjustment of mA and/or kV according to the patient''s size were employed. There is no evidence of pulmonary embolism. There is no evidence of thoracic aortic aneurysm or dissection. There is no evidence of mediastinal or hilar mass or adenopathy. There is no evidence of pulmonary mass or nodule. No localized inflammatory process is seen within the lungs. There is moderate emphysema. Bilateral apical soft tissue is seen, likely represents scarring. Limited images of the upper abdomen reveals cholecystectomy. IMPRESSION: No evidence of pulmonary embolism. No mass or localized inflammatory process. Reviewed, Interpreted and Dictated by Gonzalo Mg III, MD Transcribed by Beverley Barcenas Authenticated and . [facility]
[2022-12-27 14:33] LABS: Anion Gap 6.7 mEq/L (5-15); Blood Urea Nitrogen 11 mg/dl (7-17); Calcium 8.7 mg/dl (8.4-10.2); Carbon Dioxide 29 mmol/L (22.0-30.0); Chloride 106 mmol/L (98-107); Estimated Glomerular Filt Rate 87 ml/min (>60); GFR (African American) 105 ML/MIN (>60); Glucose 104 mg/dl (74-100); Potassium 3.7 mmoL/L (3.5-5.1); Sodium 138 mmol/L (136-145)
== END ==
PROVIDERS: PCP Family Medicine; Visit Provider Nurse Practitioner
DX: R07.89 Other chest pain (principal); R79.89 Other specified abnormal findings of blood chemistry; R00.2 Palpitations; I27.20 Pulmonary hypertension, unspecified; I34.0 Nonrheumatic mitral (valve) insufficiency; I10 Essential (primary) hypertension
CPT/HCPCS: 36415; 71275; 80048; Q9967

== ENCOUNTER → 2023-01-19 07:16 | Outpatient (CLI) | payer BC, SELFPAY | PROVIDERS: PCP Family Medicine; Visit Provider Nurse Practitioner | DX: R07.89 Other chest pain (principal); R00.2 Palpitations; I27.20 Pulmonary hypertension, unspecified; I34.0 Nonrheumatic mitral (valve) insufficiency; I10 Essential (primary) hypertension; R79.89 Other specified abnormal findings of blood chemistry | CPT/HCPCS: 78452; 93017; 93306; A9502 ==

== ENCOUNTER → 2023-07-04 14:51 | Outpatient (POV) | payer BC, SELFPAY | PROVIDERS: Visit Provider Dermatology | DX: Z00.00 Encounter for general adult medical examination without abnormal findings (principal) ==

== ENCOUNTER 2023-08-10 17:39 | Observation (INO) | payer BC, SELFPAY ==
[2023-08-10] VITALS (7 sets, daily range): BP systolic 142–165; BP diastolic 64–95; PULSE 68–94; RESP 16–22; TEMP 36.1–36.7; O2SAT 84–96; BMI 20.5; BMI 21.1
--- NOTE | 2023-08-10 17:43 | PC.NURSE ---
DR ORTIZ AT BEDSIDE
--- NOTE | 2023-08-10 17:46 | PC.NURSE ---
Dr. Cody at BS for pt eval
--- NOTE | 2023-08-10 17:47 | HMH.EDGENADL ---
Discharge Plan Disposition Patient Disposition: Admitted Condition: Good Chief Complaint: Shortness of Breath/Dyspnea Prescriptions Prescriptions: No Action atenolol 25 mg tablet 25 mg PO DAILY Qty: 90 3RF multivitamin Tablet 1 tab PO DAILY aspirin 81 mg Tablet 81 mg PO DAILY Referrals Follow up/Referrals: Artis Estrada MD [Primary Care Provider] - See instructions Clinical Impressions Clinical Impression: Acute exacerbation of chronic obstructive airways disease Discharge ED Provider: Marcello Cody General Adult HPI General Chief complaint: Shortness of Breath/Dyspnea Stated complaint: Bronchitis + 08/08 SOA Time Seen by Provider: 08/10/23 17:42 History of Present Illness HPI narrative: Patient has a PMHx significant for MVP, longtime smoker who presents to the ED with complaints of shortness of breath. Patient notes that for the past week, she started experiencing progressively worsening shortness of breath, cough, little bit of congestion. On Monday, patient went to see PCP and got diagnosed with bronchitis. Patient was discharged from PCPs office with 1 time steroid IM injection, Z-Nj, albuterol inhaler. Patient notes that she has been taking the Z-Nj, but has not been taking the as needed albuterol inhaler. Today, patient notes that her shortness of breath significantly worsened and she could hear audible wheezing. Patient decided come into the ED where upon arrival, patient was tachypneic and requiring 3 L nasal cannula to maintain saturations. Patient does not wear any oxygen at home. Patient denies any chest pain, orthopnea, PND, pitting edema, fevers, chills. Related Data Home Medications Medication Instructions Recorded Confirmed aspirin 81 mg tablet 81 mg PO DAILY Heart 12/26/22 07/20/23 multivitamin 1 tab PO DAILY Supplement 12/26/22 07/20/23 Previous Rx's Medication Instructions Recorded atenolol 25 mg tablet 25 mg PO DAILY #90 tabs 07/20/23 Allergies Allergy/AdvReac Type Severity Reaction Status Date / Time No Known Allergies Allergy Verified 07/20/23 14:51 [facility] Disclaimer: The information contained in this section may have been updated after the patient was seen, as this information can be updated by other users. Medical History Hypertension Mitral valve prolapse Mitral valve regurgitation Palpitations Surgical History History of appendectomy History of cholecystectomy History of tonsillectomy Social History Smoking Status: Current every day smoker alcohol intake: current substance use type: denies use current occupational status: employed Travel in the last 8 weeks: None ROS Obtained: Yes All systems reviewed & no additional complaints except as documented Physical Exam General General appearance: alert and in no apparent distress Head Head exam: atraumatic, normocephalic and normal inspection Eye Eye exam: Present normal appearance, PERRL and EOMI; Absent scleral icterus or nystagmus ENT ENT exam: Present normal exam, mucous membranes moist and normal external ear exam Neck Neck exam: Present normal inspection, full ROM and trachea midline Chest Chest inspection: Present normal inspection and symmetric chest wall rise; Absent tenderness Respiratory Respiratory exam: Present normal lung sounds bilaterally and wheezes (End expiratory wheezing); Absent respiratory distress or accessory muscle use Cardiovascular Cardiovascular exam: Present regular rate, normal rhythm and normal heart sounds Abdominal Exam Abdominal exam: Present soft; Absent distention, tenderness, guarding, rebound, rigidity, trauma, ascites or pulsatile mass Extremities Exam Extremities exam: Present normal inspection and full ROM; Absent tenderness Back Exam Back exam: Present normal inspe
--- NOTE | 2023-08-10 17:51 | ECG_ITS ---
APPROVED REPORT Exam: Resting ECG HR:71 bpm ECG Measurements Heart Rate 71 AXES NH 148 P -5 QRSd 93 QRS 82 QT 388 T 79 QTc 411 Conclusion SINUS RHYTHM WITH SINUS ARRHYTHMIA POSSIBLE RIGHT VENTRICULAR CONDUCTION DELAY [RSR (QR) IN V1/V2] BORDERLINE ECG UNCONFIRMED REPORT Electronically signed by : Morales Gordon MD 08/11/2023 08:52:48
--- NOTE | 2023-08-10 17:51 | XR_ITS ---
PROCEDURE INFORMATION: Exam: XR Chest Exam date and time: 08/10/2023 5:53 PM Age: 58 years old Clinical indication: Shortness of breath; Additional info: SOA, smoker TECHNIQUE: Imaging protocol: Radiologic exam of the chest. Views: 1 view. COMPARISON: CT ANGIO CHEST PE PROTOCOL 12/27/2022 2:55 PM FINDINGS: Lungs: Hyperexpanded lungs compatible with emphysema. No consolidation. Pleural spaces: Unremarkable. No pleural effusion. No pneumothorax. Heart/Mediastinum: Unremarkable. No cardiomegaly. Bones/joints: Dextroconvex scoliosis. No acute findings. IMPRESSION: No acute pulmonary findings. Emphysematous changes.
--- NOTE | 2023-08-10 18:11 | PC.NURSE ---
Notified RT of VBG order
[2023-08-10 18:12] LABS: Chloride 102 mmol/L (98-107); Potassium 3.3 mmoL/L (3.5-5.1); Sodium 137 mmol/L (136-145)
[2023-08-10 18:14] LABS: Blood Urea Nitrogen 13 mg/dl (7-17); Creatinine Clearance Estimated 87 mL/min (50-200); Estimated Glomerular Filt Rate 87 ml/min (>60); GFR (African American) 105 ML/MIN (>60); Lactic Acid 1.1 mmol/L (0.7-2.1)
[2023-08-10 18:15] LABS: Alanine Aminotransferase 30 U/L (12-78); Albumin Level 4.5 g/dl (3.5-5.0); Albumin/Globulin Ratio 1.6 (1.1-1.8); Alkaline Phosphatase 102 U/L (38-126); Anion Gap 9.3 mEq/L (5-15); Aspartate Amino Transferase 32 U/L (14-36); Bilirubin,Total 0.3 mg/dl (0.2-1.3); Calcium 8.7 mg/dl (8.4-10.2); Carbon Dioxide 29 mmol/L (22.0-30.0); Globulin 2.8 g/dL (1.3-3.2); Glucose 105 mg/dl (74-100); Total Protein,Serum 7.3 g/dl (6.3-8.2)
[2023-08-10 18:17] LABS: Basophils # 0.1 K/mm3 (0-0.2); Basophils % 0.7 % (0.1-2.0); Eosinophils # 0.3 K/mm3 (0.0-0.4); Eosinophils % 2.4 % (0.1-12.0); Hematocrit 42.1 % (37.0-47.0); Hemoglobin 14.4 g/dL (12.2-16.2); Lymphocytes # 2.1 K/mm3 (0.7-4.5); Lymphocytes % 20.9 % (10-50); Mean Corpuscular HGB Conc 34.2 g/dL (31.8-35.4); Mean Corpuscular Hemoglobin 30.5 pg (27.0-31.2); Mean Corpuscular Volume 89.2 fl (81-99); Mean Platelet Volume 7.4 fl (7.4-10.4); Monocytes # 0.7 K/mm3 (0.1-1.0); Monocytes % 6.7 % (1.7-9.3); Neutrophils # 7.1 K/mm3 (1.8-7.8); Neutrophils % 69.4 % (37.0-80.0); Platelet Count 250 K/mm3 (142-424); Red Blood Count 4.72 M/mm3 (4.20-5.40); Red Cell Distribution Width 13.1 % (11.5-17.5); White Blood Count 10.3 K/mm3 (4.8-10.8)
[2023-08-10 18:18] LABS: VBG Base Excess 0.1 mmol/L (-2.4-2.3); VBG HCO3 25.8 mmol/L (23-30); VBG Oxygen Saturation 90.4 % (50-70); VBG PCO2 48.6 mmol/L (35-51); VBG PH 7.34 mmol/L (7.31-7.41); VBG PO2 58.6 mmol/L (28-40); VBG Total CO2 27.3 mmol/L (23-27)
[2023-08-10 18:28] LABS: Troponin I < 0.01 ng/ml (0.00-0.034)
--- NOTE | 2023-08-10 19:54 | PC.NURSE ---
called registration to have 's supervisor of instruction MD paged.
--- NOTE | 2023-08-10 20:05 | PC.NURSE ---
Notified house database administrator of need for bed for COPD exacerbation. Admitted by Dr. Larsen covering for Dr. Estrada.
--- NOTE | 2023-08-10 20:09 | PC.NURSE ---
Admitting notified for Acute Admission for new oxygen requirement r/t Acute COPD exacerbation/Chava for [place]/ 207
--- NOTE | 2023-08-10 20:28 | PC.WOUNDNOTE ---
Attempted to call report, no answer at this time. Will call back.
--- NOTE | 2023-08-10 21:03 | PC.NURSE ---
Pt arrived to floor via wheelchair @ 2057
[2023-08-10 22:05] LABS: Troponin I < 0.01 ng/ml (0.00-0.034)
[2023-08-11] VITALS (7 sets, daily range): BP systolic 120–152; BP diastolic 67–79; PULSE 83–101; RESP 16–20; TEMP 36.4–36.7; O2SAT 90–97; BMI 21.1
--- NOTE | 2023-08-11 08:03 | HMH.PHAINT1 ---
Pharmacy Intervention Comments: MEDICATION RECONCILIATION COMPLETED ON PATIENT USING EXTERNAL FILL HISTORY FROM PHARMACY. -JAMAAL CAI, ELICIAD
--- NOTE | 2023-08-11 08:50 | EXP.HP ---
History of Present Illness *Admission Date: 08/10/23 *Reason for visit:: hypoxia *History of present illness: In summary, Patient has a PMHx significant for MVP, longtime smoker who presents to the ED with complaints of shortness of breath. Patient notes that for the past week, she started experiencing progressively worsening shortness of breath, cough, little bit of congestion. On Monday, patient went to see PCP and got diagnosed with bronchitis. Patient was discharged from PCPs office with 1 time steroid IM injection, Z-Nj, albuterol inhaler. Patient notes that she has been taking the Z-Nj, but has not been taking the as needed albuterol inhaler. Today, patient notes that her shortness of breath significantly worsened and she could hear audible wheezing. Patient decided come into the ED where upon arrival, patient was tachypneic and requiring 3 L nasal cannula to maintain saturations. Patient does not wear any oxygen at home. Patient denies any chest pain, orthopnea, PND, pitting edema, fevers, chills. On physical examination, the patient was tachypneic in the high 20s, requiring 3 L nasal cannula, with diffuse end expiratory wheezing bilaterally. The DDx includes, but is not limited to, ACS, asthma vs COPD exacerbation, arrhythmia, pneumothorax, pneumonia, pleural effusion, acute metabolic derangement, acute hematologic derangement, viral syndrome, pericarditis/myocarditis, or other acute infectious process.. All of these have been considered, however ruling out the most morbid conditions drove my clinical assessment and thus the following laboratory and/or radiographic evaluation was conducted to the appropriate extent based on history and physical examination. All ordered laboratory studies independently reviewed and interpreted by myself and pertinent for: - CBC was unremarkable for any actionable leukocytosis, anemia, or thrombocytopenia. - CMP was unremarkable for any actionable electrolyte derangement, elevated reatine, or transaminitis. - VBG was WNL, no resp acidosis or hypercapnia - Troponin <0.01 EKG independently reviewed and interpreted as follows: - EKG: Regular rate and rhythm. No actionable ST elevations or interval abnormalities with normal QTc X-ray/CT/US studies independently reviewed and interpreted by myself and notable for: - Chest XR was unremarkable for any signs of an acute pulmonary process, including pneumonia, ARDS, pleural effusion, pulmonary edema, pneumothorax, or pneumomediastinum. No obvious osseous injuries. Interventions/Medications Received in the ED: - 125mg Solumedrol - Abx with azithro and rocephin - 3x duonebs, 1 continuous albuterol inhaler Reassessment: On re-evaluation of patient, patient continues to require oxygen and have wheezing. (above as per ER physician) The patient was admitted and started on oxygen, zithromax, and rocephin. She was given a neb treatment and one dose of solumedrol.. [facility] Disclaimer: The information contained in this section may have been updated after the patient was seen, as this information can be updated by other users. Medical History (Updated 08/11/23 @ 08:59 by HALLIE Fish) GERD (gastroesophageal reflux disease) Hypertension Mitral valve prolapse Mitral valve regurgitation Palpitations Scoliosis Surgical History History of appendectomy History of cholecystectomy History of tonsillectomy Family History (Updated 08/11/23 @ 08:55 by HALLIE Fish) Coronary artery disease Cancer Social History (Updated 08/10/23 @ 21:08 by Marquita Vasquez RN) Smoking Status: Current every day smoker alcohol intake: current substance use type: denies use current occupational status: employed Travel in the last 8 weeks: None Review of Systems Constitutional Constitutional: Reports body ache(s), Reports chills, Denies fever(s), Reports headache(s) and Reports weakness Eyes Eyes: Nathan
[2023-08-11 10:53] LABS: D-Dimer 0.65 ug/mL (0.0-0.5)
[2023-08-11 11:21] LABS: Alanine Aminotransferase 28 U/L (12-78); Albumin Level 4.5 g/dl (3.5-5.0); Albumin/Globulin Ratio 1.5 (1.1-1.8); Alkaline Phosphatase 149 U/L (38-126); Aspartate Amino Transferase 30 U/L (14-36); Bilirubin,Total 0.4 mg/dl (0.2-1.3); Blood Urea Nitrogen 8 mg/dl (7-17); Calcium 9.1 mg/dl (8.4-10.2); Carbon Dioxide 28 mmol/L (22.0-30.0); Chloride 104 mmol/L (98-107); Creatinine Clearance Estimated 125 mL/min (50-200); Estimated Glomerular Filt Rate 128 ml/min (>60); GFR (African American) 154 ML/MIN (>60); Glucose 118 mg/dl (74-100); Sodium 139 mmol/L (136-145); Total Protein,Serum 7.5 g/dl (6.3-8.2)
--- NOTE | 2023-08-11 11:51 | PC.NURSE ---
tech note; made nurse aware of O2 saturations for 0800 vital signs
[2023-08-11 13:23] LABS: Adenovirus,PCR Not Detected (NotDetected); Coronavirus 19, PCR Not Detected (NotDetected); Coronavirus 229E Not Detected (NotDetected); Coronavirus NL63 Not Detected (NotDetected); Coronavirus OC43 Not Detected (NotDetected); Coronovirus HKU1,PCR Not Detected (NotDetected); Human Metapneumovirus Not Detected (NotDetected); Influenza A, PCR Not Detected (NotDetected); Influenza AH1, 2009 Not Detected (NotDetected); Influenza AH1, PCR Not Detected (NotDetected); Influenza AH3,PCR Not Detected (NotDetected); Influenza B, PCR Not Detected (NotDetected); Parainfluenza 1, PCR Not Detected (NotDetected); Parainfluenza 2, PCR Not Detected (NotDetected); Parainfluenza 3, PCR Not Detected (NotDetected); Parainfluenza 4, PCR Not Detected (NotDetected); Respiratory Syncytial Virus Not Detected (NotDetected)
--- NOTE | 2023-08-11 13:54 | CT_ITS ---
FINAL REPORT CLINICAL HISTORY: Shortness of breath, elevated D-Dimer COMPARISON: 12/27/2022 FINDINGS: Thin section axial CT images of the chest were obtained with contrast. 3D reformatted images were also obtained. This study was performed with techniques to keep radiation doses as low as reasonably achievable (ALARA). Individualized dose reduction techniques using automated exposure control or adjustment of mA and/or kV according to the patient''s size were employed. There is no evidence of pulmonary embolism. There is no evidence of thoracic aortic aneurysm or dissection. There is no evidence of mediastinal or hilar mass or adenopathy. There is moderate emphysema. There are stable areas of soft tissue in the lung apices favored to represent scarring. No pulmonary mass or nodule identified. There is dextroscoliosis of the thoracic spine. Limited images of the upper abdomen are unremarkable. Postcholecystectomy. IMPRESSION: No evidence of pulmonary embolism. No mass or localized inflammatory process. Reviewed, Interpreted and Dictated by Gonzalo Mg III, MD Transcribed by Saira Cedillo Authenticated and [facility]
[2023-08-11 15:57] LABS: Rhinovirus/Enterovirus Detected (NotDetected)
--- NOTE | 2023-08-11 18:29 | PC.NURSE ---
Patient had no complaints of shortness of air this shift, patient weaned to 1 liter O2 this shift. Patient's vital signs stable.
[2023-08-12 04:00] VITALS: BP 116/65; PULSE 88; RESP 16; TEMP 36.7; O2SAT 92; BMI 20.6
[2023-08-12 06:05] VITALS: PULSE 101; PULSE 103; O2SAT 90
[2023-08-12 07:57] VITALS: BP 140/64; PULSE 82; RESP 17; TEMP 36.8; O2SAT 90
[2023-08-12 10:26] VITALS: PULSE 96; PULSE 98
--- NOTE | 2023-08-12 11:18 | EXP.ACUTE.PN ---
Subjective *Date: 08/12/23 *Time: 11:18 Interval history: She is anxious for discharge. She was able to get some sleep. She has normal O2 saturation on room air this morning. She still has wheezes on the left. Medical Exam Vital signs and Labs for Last 24 Hours: Vital Signs Temp Pulse Pulse Resp BP Pulse Ox O2 Del Method 08/12/23 10:26 98 H 08/12/23 10:26 96 H 08/12/23 07:57 98.2 F 82 17 140/64 90 L Nasal Cannula 08/12/23 06:57 Nasal Cannula 08/12/23 05:00 Nasal Cannula 08/12/23 06:05 101 H 08/12/23 06:05 103 H 08/12/23 06:05 90 L Nasal Cannula 08/12/23 04:00 98.1 F 88 16 116/65 92 L Nasal Cannula 08/12/23 03:00 Nasal Cannula 08/12/23 01:00 Nasal Cannula 08/11/23 23:00 Nasal Cannula 08/11/23 20:00 Nasal Cannula 08/11/23 21:00 Nasal Cannula 08/11/23 20:00 98.1 F 101 H 16 136/67 97 Nasal Cannula 08/11/23 19:42 91 H 08/11/23 19:42 91 H 08/11/23 19:42 90 L Nasal Cannula 08/11/23 15:48 97.9 F 83 20 120/77 96 Nasal Cannula 08/11/23 13:56 96 Nasal Cannula 08/11/23 13:55 85 08/11/23 13:55 83 O2 Flow Rate 08/12/23 10:26 08/12/23 10:26 08/12/23 07:57 1 08/12/23 06:57 1 08/12/23 05:00 1 08/12/23 06:05 08/12/23 06:05 08/12/23 06:05 1 08/12/23 04:00 1 08/12/23 03:00 1 08/12/23 01:00 1 08/11/23 23:00 1 08/11/23 20:00 1 08/11/23 21:00 08/11/23 20:00 08/11/23 19:42 08/11/23 19:42 08/11/23 19:42 1 08/11/23 15:48 2 08/11/23 13:56 2 08/11/23 13:55 08/11/23 13:55 Intake and Output 08/11/23 08/12/23 08/12/23 19:59 03:59 11:59 Intake Total 0 / 770 300 / 770 470 / 770 Output Total 400 / 400 Balance 0 / 370 -100 / 370 470 / 370 Intake: Intake, Oral Amount 0 / 470 470 / 470 Intake, Total IV Amount 300 / 300 Azithromycin 500 mg In 0.9 % 250 / 250 Sodium Chloride 250 ml @ 250 mls/hr IV Q24H [facility] Rx#:[id number] Ceftriaxone 1 gm 1 gm In 0.9 % 50 / 50 Sodium Chloride 50 ml @ 100 mls /hr IV Q24H [facility] Rx#:[id number] Output: Output, Urine Amount 400 / 400 Other: Weight 136 lb 5 oz Patient Weight 08/12/23 11:59 Weight 136 lb 5 oz Laboratory Results - last 24 hr 08/11/23 10:30: Sodium 139, Potassium 4.0 D, Chloride 104, Carbon Dioxide 28, Anion Gap 11.0, BUN 8 D, Creatinine 0.50 L D, Estimated Creat Clear 125, Estimated GFR 128, Est GFR ( Amer) 154 D, Glucose 118 H, Calcium 9.1, Total Bilirubin 0.4, AST 30, ALT 28, Alkaline Phosphatase 149 H, Total Protein 7.5, Albumin 4.5, Globulin 3.0, Albumin/Globulin Ratio 1.5 08/11/23 13:20: Chlamy pneumoniae PCR TNP, Adenovirus (PCR) Not detected, B. pertussis DNA (PCR) TNP, Coronavirus OC43 (PCR) Not detected, Coronavirus HKU1 (PCR) Not detected, Coronavirus 229E (PCR) Not detected, SARS-CoV-2 (PCR) Not detected, Coronavirus NL63 (PCR) Not detected, Human Metapneumovir PCR Not detected, Influenza A (H1) PCR Not detected, Influ A (H1N1/09) PCR Not detected, Influenza A (H3) PCR Not detected, Influenza Type A (PCR) Not detected, Influenza Type B (PCR) Not detected, M. pneumoniae (PCR) TNP, Parainfluenza 1 (PCR) Not detected, Parainfluenza 2 (PCR) Not detected, Parainfluenza 3 (PCR) Not detected, Parainfluenza 4 (PCR) Not detected, RSV (PCR) Not detected, Entero/Rhino (PCR) Detected A I & O for Labs for Last 24 Hours: Intake & Output 08/09/23 08/10/23 08/11/23 08/12/23 11:59 11:59 11:59 11:59 Intake Total 800 / 800 770 / 770 Output Total 0 / 0 400 / 400 Balance 800 / 800 370 / 370 Weight 139 lb 5 oz 136 lb 5 oz Head: Present normocephalic Neck: Present full ROM Respiratory: Present decreased breath sounds, wheezes (More left than right) and able to speak in complete sentences; Absent respiratory distress Cardiac: Present Reg Rate and Rhythm GI: Present soft; Absent tenderness Rectal (female): Present def
--- NOTE | 2023-08-12 11:59 | HMH.PHAINT1 ---
Pharmacy Intervention Comments: DISCHARGE MEDICATION COUNSELING PROVIDED. DISCUSSED STARTING CEFDINIR (ANTIBIOTIC, TWICE DAILY, START TONIGHT, TAKE WITH FOOD, N/V/D POSSIBLE) AND PREDNISONE (STEROID, DAILY, TAKE IN THE MORNING WITH FOOD, MAY CAUSE UPSET STOMACH, INSOMNIA) PATIENT VERBALIZED NO QUESTIONS AT THIS TIME.
--- NOTE | 2023-08-14 16:45 | CARE MANAGER ---
Contacted patient related to hospital discharge. She states she is doing fair and followed up with her PCP today. She is taking her antibiotic and prednisone and denies any questions or concerns. GARRY Martinez
--- NOTE | 2023-08-17 14:44 | EXP.DC.SUM ---
General Admission date:: 08/10/23 Discharge date: 08/12/23 HPI HPI HPI: In summary, Patient has a PMHx significant for MVP, longtime smoker who presents to the ED with complaints of shortness of breath. Patient notes that for the past week, she started experiencing progressively worsening shortness of breath, cough, little bit of congestion. On Monday, patient went to see PCP and got diagnosed with bronchitis. Patient was discharged from PCPs office with 1 time steroid IM injection, Z-Nj, albuterol inhaler. Patient notes that she has been taking the Z-Nj, but has not been taking the as needed albuterol inhaler. Today, patient notes that her shortness of breath significantly worsened and she could hear audible wheezing. Patient decided come into the ED where upon arrival, patient was tachypneic and requiring 3 L nasal cannula to maintain saturations. Patient does not wear any oxygen at home. Patient denies any chest pain, orthopnea, PND, pitting edema, fevers, chills. On physical examination, the patient was tachypneic in the high 20s, requiring 3 L nasal cannula, with diffuse end expiratory wheezing bilaterally. The DDx includes, but is not limited to, ACS, asthma vs COPD exacerbation, arrhythmia, pneumothorax, pneumonia, pleural effusion, acute metabolic derangement, acute hematologic derangement, viral syndrome, pericarditis/myocarditis, or other acute infectious process.. All of these have been considered, however ruling out the most morbid conditions drove my clinical assessment and thus the following laboratory and/or radiographic evaluation was conducted to the appropriate extent based on history and physical examination. All ordered laboratory studies independently reviewed and interpreted by myself and pertinent for: - CBC was unremarkable for any actionable leukocytosis, anemia, or thrombocytopenia. - CMP was unremarkable for any actionable electrolyte derangement, elevated reatine, or transaminitis. - VBG was WNL, no resp acidosis or hypercapnia - Troponin <0.01 EKG independently reviewed and interpreted as follows: - EKG: Regular rate and rhythm. No actionable ST elevations or interval abnormalities with normal QTc X-ray/CT/US studies independently reviewed and interpreted by myself and notable for: - Chest XR was unremarkable for any signs of an acute pulmonary process, including pneumonia, ARDS, pleural effusion, pulmonary edema, pneumothorax, or pneumomediastinum. No obvious osseous injuries. Interventions/Medications Received in the ED: - 125mg Solumedrol - Abx with azithro and rocephin - 3x duonebs, 1 continuous albuterol inhaler Reassessment: On re-evaluation of patient, patient continues to require oxygen and have wheezing. (above as per ER physician) The patient was admitted and started on oxygen, zithromax, and rocephin. She was given a neb treatment and one dose of solumedrol.. Hospital Course Hospital Course Hospital Course: The patient's chest x-ray showed no acute findings. It did show emphysema. She was started on Zithromax and Rocephin and given a one-time dose of steroids and 1 neb in the emergency room. DuoNebs and IV steroids were both added and a respiratory panel was ordered. By 08/12/2023, she was feeling better and was anxious for discharge. Her oxygen saturation was normal on room air. Her respiratory panel was positive for entero-/rhinovirus. She was stable to be discharged home on continued antibiotics. She will also continue her albuterol inhaler at home and will follow-up in the office of [facility]. Exam Data for Last 24 hours Vital signs and Labs for Last 24 Hours: Temp Pulse Resp BP Pulse Ox O2 Del Method O2 Flow Rate 98.2 F 98 H 17 140/64 90 L Nasal Cannula 1 08/12/23 07:57 08/12/23 10:26 08/12/23 07:57 08/12/23 07:57 08/12/23 07:57 08/12/23 07:57 08/12/23 07:57 Narrative: Constitutional Constitutional: no acute distress *Routine HEENT Exam Head: Pr
== END 2023-08-12 12:20 | disposition home or self-care (01) ==
LOC: ER 20:07 → 2ND 20:23
PROVIDERS: Physician Assistant; Admitting Provider Family Medicine; Emergency Provider Emergency Medicine; PCP Family Medicine; Visit Provider Family Medicine
DX: J44.1 Chronic obstructive pulmonary disease with (acute) exacerbation (principal); E87.6 Hypokalemia; I27.20 Pulmonary hypertension, unspecified; I34.1 Nonrheumatic mitral (valve) prolapse; I10 Essential (primary) hypertension; J98.01 Acute bronchospasm; F17.210 Nicotine dependence, cigarettes, uncomplicated; B34.8 Other viral infections of unspecified site
CPT/HCPCS: 36415; 71045; 71275; 80053; 82803; 83605; 84484; 85025; 85378; 87040; 87632; 87635; 93005; 94640; 94760; 94761; 99285; G0378; J0456; J0696; Q9967

== ENCOUNTER → 2023-08-22 07:23 | Outpatient (CLI) | payer BC, SELFPAY ==
--- NOTE | 2023-08-22 07:27 | CT_ITS ---
FINAL REPORT TECHNIQUE: Axial images through the abdomen and pelvis were performed without contrast. Oral contrast was given. This study was performed with techniques to keep radiation doses as low as reasonably achievable, (ALARA). Individualized dose reduction techniques using automated exposure control or adjustment of mA and/or kV according to the patient's size were employed. CLINICAL HISTORY: LT LOWER QUAD PAIN x 1 week FINDINGS: ABDOMEN: The lung bases are clear. The heart size is normal. Limited images of the liver are unremarkable. The patient is status post cholecystectomy. The spleen is normal. No adrenal mass is identified. The aorta is normal in caliber. There is no significant free fluid or adenopathy. There is a 5 mm high attenuation focus in the left kidney. It is uncertain if this represents parenchymal calcification or a hyperdense cyst. Moderate vascular calcification is identified. There is no nephrolithiasis. There is no hydronephrosis. PELVIS: The appendix is normal. There is sigmoid diverticulosis without evidence of diverticulitis. The urinary bladder is unremarkable. There is no significant free fluid or adenopathy. There are bilateral L5 pars defects. IMPRESSION: Sigmoid diverticulosis without evidence of diverticulitis. Reviewed, Interpreted and Dictated by Gonzalo Mg III, MD Transcribed by Beverley Barcenas Authenticated and [facility]
== END ==
PROVIDERS: PCP Family Medicine; Visit Provider Physician Assistant
DX: R10.32 Left lower quadrant pain (principal)
CPT/HCPCS: 74176

== ENCOUNTER → 2023-08-25 08:54 | Outpatient (CLI) | payer BC, SELFPAY ==
--- NOTE | 2023-08-25 09:00 | US_ITS ---
FINAL REPORT TECHNIQUE: Limited sonographic images of the kidneys were obtained. CLINICAL HISTORY: KIDNEY CYSTS FINDINGS: The right kidney measures 9.5 cm in length. It is normal in echogenicity. There is no hydronephrosis. The left kidney measures 9.8 cm in length. It is normal in echogenicity. There is no hydronephrosis. The spleen is unremarkable. IMPRESSION: Normal renal ultrasound. Reviewed, Interpreted and Dictated by Gonzalo Mg III, MD Transcribed by Beverley Barcenas Authenticated and [facility]
== END ==
PROVIDERS: PCP Family Medicine; Visit Provider Physician Assistant
DX: N28.1 Cyst of kidney, acquired (principal)
CPT/HCPCS: 76770

== ENCOUNTER 2023-09-19 15:04 | Outpatient (CLI) | payer BC, SELFPAY ==
--- NOTE | 2023-09-19 15:09 | MM_ITS ---
PROCEDURE INFORMATION: Exam: MG Bilateral Screening 3D Mammography Exam date and time: 09/19/2023 3:14 PM Age: 58 years old Clinical indication: Screening examination TECHNIQUE: Imaging protocol: Bilateral Screening tomosynthesis and 2D mammography including computer-aided detection (CAD) when performed. COMPARISON: 1. MG MM DIG SCREENING MAMM BI W/CAD 09/15/2022 9:44 AM 2. MG MM DIG SCREENING MAMM BI W/CAD 09/14/2021 9:55 AM FINDINGS: MAMMOGRAPHY: Breast composition: The breasts are heterogeneously dense, which may obscure small masses. Mass: None. Architectural distortion: None. Calcifications: No suspicious calcifications. Asymmetric density: None. Skin thickening: None. Axillary adenopathy: None. IMPRESSION: No mammographic evidence of malignancy. Annual screening is recommended unless otherwise clinically indicated. ASSESSMENT: BI-RADS Category 1: Negative
== END 2023-09-19 23:59 ==
LOC: RAD 15:04
PROVIDERS: PCP Family Medicine; Visit Provider Family Medicine
DX: Z12.31 Encounter for screening mammogram for malignant neoplasm of breast (principal)
CPT/HCPCS: 77063; 77067

== ENCOUNTER 2024-02-19 06:17 | Outpatient (CLI) | payer BC, SELFPAY ==
--- NOTE | 2024-02-19 | CT_ITS ---
FINAL REPORT TECHNIQUE: Thin section axial images were obtained from the lung apices to the upper abdomen by computed tomography. Reformatted images were obtained and reviewed. This study was performed with techniques to keep radiation doses al low as reasonably achievable (ALARA). Individualized dose reduction techniques using automated exposure control or adjustment of mA and/or kV according to the patient's size were employed. CLINICAL HISTORY: current smoker 1/2ppd x40 years COMPARISON: CTA of the chest 12/27/2022 and 08/11/2023 FINDINGS: CHEST CT LOW DOSE 59-year-old female, current smoker, 83-dxqn-auxw history. CTDI vol (mGy): 2.9 DLP (mGy-cm): 106.55 There is no axillary adenopathy. There is no mediastinal or hilar mass or adenopathy. The heart is normal in size. There is no pericardial or pleural effusion. There is moderate to severe emphysema and moderate to severe pulmonary scarring. There are multifocal areas of scarring in the upper thorax, more prominent on the right than on the left. Lung window images demonstrate a 2 mm nodule in the left upper lobe seen best on image #25. Dextroscoliosis is present. Limited images of the upper abdomen reveal the gallbladder is surgically absent. IMPRESSION: Lung-RADS category 2. Recommend 12 month follow up low dose chest CT. Reviewed, Interpreted and Dictated by Gonzalo Mg III, MD Transcribed by Evelia Alarcon Authenticated and [facility]
== END 2024-02-19 23:59 | disposition home or self-care (01) ==
LOC: RAD 06:18
PROVIDERS: PCP Family Medicine; Visit Provider Nurse Practitioner Family
DX: F17.200 Nicotine dependence, unspecified, uncomplicated (principal)
CPT/HCPCS: 71271

== ENCOUNTER 2024-04-03 16:32 | Outpatient (CLI) | payer BC, SELFPAY ==
--- OUTSIDE RECORDS SUMMARY | 2024-04-03 16:35 | XMS_ITS ---
Author Name Unknown Organization [facility] Address [address] [facility] [address] [place] [id number] Care Team Providers Care Hose Tester Name Role Phone Artis Estrada Primary Care Provider Merry Patton Unavailable [phone] ALLERGIES No Known Allergies RESULTS Component Value Reference Range Notes P-Pap Test Thin Prep Reviewed date:02/20/2024 12:02:42 PM Interpretation:Negative Performing Lab: Notes/Report: Pap Test Thin Prep Negative for Intraepithelial Lesion or Malignancy Source: Cervical LMP: 2020 Date Taken: 02/13/2024 Specimen Type: ThinPrep Vial Date Reported: 02/15/2024 Clinical Data: [employer]: CASEY Fernandez(ASCP) Date Reported: 02/15/2024 Reviewed By: CASEY Nugent(ASCP) Specimen Adequacy: Satisfactory for evaluation Endocervical/transforma tion zone component present General Categorization: NEGATIVE FOR INTRAEPITHELIAL LESION OR MALIGNANCY Interpretation/Result: Atrophy This specimen has been analyzed by the ThinPrep Imaging System, an interactive computer system which assists the lab in the screening of ThinPrep Pap Test slides. Following imaging, the slide was reviewed by a Social Insurance Specialist and/or Pathologist. End of Report Technical services provided by [facility], [address] [place] [address] , [place] [address] Mynor Bravo MD, Railway Patrol Officer. Case reviewed and diagnosis rendered at [facility], [facility] , [place] [address] Mynor Bravo MD, Railway Patrol Officer. CONFIDENTIAL P-Comprehensive Metabolic Pa naomi (CMP) Reviewed date:02/20/2024 12:02:17 PM Interpretation:cl 110, a/g 2.6 Performing Lab: Notes/Report: Test performed by [facility], [address] , [address], [place] [address] Augustine Cerna MD, Railway Patrol Officer CLIA: [id number] Sodium 142 135-145 mEq/L Potassium 4.4 3.5-5.3 mEq/L Chloride 110 97-108 mEq/L CO2 23 22-32 mEq/L Glucose 86 65-99 mg/dL BUN 14 6-20 mg/dL Creatinine 0.68 0.50-1.00 mg/dL Calcium 8.9 8.6-10.4 mg/dL eGFR by Creatinine 102 >59 mL/min/1.73m2 Protein 6.1 6.0-8.3 g/dL Albumin 4.4 3.5-5.3 g/dL Alkaline Phosphatase 108 35-121 IU/L ALT (SGPT) 14 <5-47 IU/L AST (SGOT) 16 <5-40 IU/L Bilirubin, Total 0.3 <0.2-1.2 mg/dL A/G Ratio 2.6 1.1-2.5 mg/dL CT SCAN : CHEST, LUNG CANCER SCREENING LOW DOSE Reviewed date:02/20/2024 12:01:52 PM Interpretation: Performing Lab: Notes/Report: REASON FOR VISIT Annual physical, Needs labs, low dose chest CT, Tdap, & shingles vaccine MEDICATIONS Medication SIG (Take, Route, Frequency, Duration) Notes Start Date End Date Status Vistaril 25 MG 1 capsule at bedtime as needed Orally bid prn 02/13/2024 Active Promethazine-DM 6.25-15 MG/5ML 5 ml as needed Orally every 6 hrs prn Not-Taking Benzonatate 200 MG 1 capsule Orally Three times a day prn Not-Taking Crestor 5 MG 1 tablet Orally Once a day for 30 day(s) 02/13/2024 Active Zithromax Z-Nj 250 MG 2 pills first day then one daily for 4 days orally as directed 08/08/2023 Not-Taking Cyclobenzaprine HCl 5 MG 1 tab(s) Orally three times a day as needed 09/01/2023 Not-Taking Clindamycin HCl 300 MG 1 capsule Orally every 8 hrs for 10 day(s) 09/06/2023 Not-Taking Albuterol Sulfate HFA 108 (90 Base) MCG/ACT 1 puff as needed Inhalation qid and q2h prn Not-Taking Cyclobenzaprine HCl 10 MG 1 tab orally t id prn for 30 days 01/19/2022 Not-Taking Medrol 4 MG as directed orally daily for 6 days 09/01/2023 Not-Taking Spacer/Aero-Holding Chambers - as directed four times a day as needed 08/14/2023 Active Atenolol 25 MG 1 tab(s) orally once a day Active Aspirin 325 MG 1 tab(s) orally once a day Active Multiple Vitamin - 1 cap(s) orally once a day Active IMMUNIZATIONS Vaccine Route Administration Date Status Comme nts Shingrix IM Intramuscular 02/13/2024 Administered Tetanus Tdap-Adacel (over 7yrs) IM Intramuscular 02/13/2024 Administered PROBLEMS Problem Type ICD Code Onset Dates Problem Status W/U Status Risk SNOMED Code Notes Problem Smoker (F17.200) Active confirmed Smoke r (81818978) Problem Hypercholesteremia (E78.00) Active confirmed Pure hypercholesterolemia (200601295) VITAL SIGNS Weight 140 lbs 02/13/2024 Blood pressure systolic 110 mm Hg 02/13/20 24 Blood pressure diastolic 78 mm Hg 024 Height 67 in 02/13/2024 BMI 21.92 kg/m2 02/13/2024 Encounters Encounter Location Date Provider Diagnosis [facility] [address] [facility] [address] [place], [place] [id number] 02/13/2024 Merry Patton Encounter for vaccin ation Z23 ; Smoker F17.200 ; Hypercholesteremia E78.00 ; Pap smear for cervical cancer screening Z12.4 ; Anxiety F41.9 ; Insomnia G47.00 and Palpitations R00.2 ASSESSMENTS Encounter Date Diagnosis Assessment Notes Treatment Notes Treatment Clinical Notes 02/13/2024 Encounter for vaccination (ICD-10 - Z23) 02/13/2024 Smoker (ICD-10 - F17.200) 02/13/2024 Hypercholesteremia (ICD-10 - E78.00) discussed low fat /chol diet; will try Crestor and repeat lipids in 4-6 months 02/13/2024 Pap smear for cervic al cancer screening (ICD-10 - Z12.4) 02/13/2024 Anxiety (ICD-10 - F41.9) 02/13/2024 Insomnia (ICD-10 - G47.00) 02/13/2024 Palpitations (ICD-10 - R00.2) PLAN OF TREATMENT Medication Medication Name Sig Start Date Stop Date Notes Vistaril 25 MG 1 capsule at bedtime as needed Orally bid prn 02/13/2024 Crestor 5 MG 1 tablet Orally Once a day for 30 day(s) 01/17 Treatment Notes Assessment Notes Hypercholesteremia discussed low fat /c hol diet; will try Crestor and repeat lipids in 4-6 months Next Appt Details Follow Up: 1 Year,and Mary [place]: Provider Name:Estella cosme, 04/03/2024 03:45:00 PM, [address], [address], [place], [place], [id number], Progress Notes * Examination Category Sub-Category Detail Notes General Examination HEENT: sclera and c onjunctiva clear, PERRLA, TM's normal, translucent Heart: RRR Lungs: CTAB A&P Abdomen: bowel sounds present , soft and nontender, no organomegaly or masses, no aortic bruit Extremities: no leg edema General Appearance: NAD, appears healthy , alert, pleasant Neurologic Exam: alert and oriented Neck: supple, no lymphaden opathy, no carotid bruits, thyroid normal Oral cavity: mucosa moist and WNL , no erythema Back: scoliosis noted with convexity towards the right [employer] Cervix: no lesions, norm al appearing; Pap done, no cervical movement tenderness Vagina: normal, no lesions, healthy pink mucosa without any lesions Uterus: normal size, shape a nd consistency, normal mobility, nontender Adnexa: no masses or tendern ess bilaterally Urethra: meatus normal Rectal exam: hemorrhoidal tags Breasts: left breast slightly larger than right, retracted nipple(s), no signs of mastitis, no dimpling, no skin changes, no dominate masses, no lymph nodes palpable External genitalia normal LABS LDL 126 HDL 49 glucose 88 Total Cholesterol 194 TSH 2.02 Triglyceride 108 History and Physical Notes * HPI (History of Present Illness) Category Sub-Category Detail Notes [employer] vaginal discharge breast complaints routine pap smear Last pap 05/02/2022 l ast mammogram 08/2023
--- OUTSIDE RECORDS SUMMARY | 2024-04-03 16:35 | XMS_ITS ---
Author Name Unknown [facility] Address [address] [facility] [address] [place] [id number] Care Team Providers Care Lead Person Name Role Phone Artis Estrada Primary Care Provider Estella Saenz Unavailable [phone] ALLERGIES No Known Allergies RESULTS Component Value Reference Range Notes Urinalysis - Inhouse Reviewed date:09/15/2023 05:01:30 PM Interpretation: Performing Lab: Notes/Report: Color/Clarity clear Leuk tr Nitrite neg Urobili 3.2 Protein neg pH 6.0 Blood neg Sp. Gr. <=1.005 Ketone neg Bili neg Gluc neg bacteria WBC RBC TEN-UTI panel Reviewed date:11/07/2023 01:53:51 PM Interpretation:Test not performed Performing Lab: Notes/Report: Test not performed REASON FOR VISIT follow up on UTI MEDICATIONS Medication SIG (Take, Route, Frequency, Duration) Notes Start Date End Date Status Benzonatate 200 MG 1 capsule Orally Three times a day prn Not-Taking Cyclobenzaprine HCl 10 MG 1 tab orally t id prn for 30 days 01/19/2022 Not-Taking Multiple Vitamin - 1 cap(s) orally once a day Active Zithromax Z-Nj 250 MG 2 pills first day then one daily for 4 days orally as directed 08/08/2023 Not-Taking Promethazine-DM 6.25-15 MG/5ML 5 ml as needed Orally every 6 hrs prn Not-Taking Spacer/Aero-Holding Chambers - as directed four times a day as needed 08/14/2023 Active Cyclobenzaprine HCl 5 MG 1 tab(s) Orally three times a day as needed 09/01/2023 Not-Taking Albuterol Sulfate HFA 108 (90 Base) MCG/ACT 1 puff as needed Inhalation qid and q2h prn Active Clindamycin HCl 300 MG 1 capsule Orally every 8 hrs for 10 day(s) 09/06/2023 Active Medrol 4 MG as directed orally daily for 6 days 09/01/2023 Not-Taking Atenolol 25 MG 1 tab(s) orally once a day Active Aspirin 325 MG 1 tab(s) orally once a day Active VITAL SIGNS Weight 136 lbs 09/15/2023 Blood pressure systolic 110 mm Hg 09/15/20 23 Blood pressure diastolic 70 mm Hg 023 Heart Rate 70 /min 09/15/2023 Height 67 in 09/15/2023 BMI 21.30 kg/m2 09/15/2023 Encounters Encounter Location Date Provider Diagnosis [facility] [address] [facility] [address] [facility] [address] [place] [id number] 09/15/2023 Estella Crowraul Dysuria R30.0 and Recurrent UTI N39.0 ASSESSMENTS Encounter Date Diagnosis Assessment Notes Treatment Notes Treatment Clinical Notes 09/15/2023 Dysuria (ICD-10 - R30.0) Will recheck a TEN panel to see if abx have cleared the infection. 09/15/2023 Recurrent UTI (ICD-10 - N39.0) PLAN OF TREATMENT Treatment Notes Assessment Notes Dysuria Will recheck a TEN p vicki to see if abx have cleared the infection. Next Appt Details Follow Up: via phone to repo rt test results, Reason: Provider Name:Estella cosme, 04/03/2024 03:45:00 PM, [address] [facility] [address] [facility], [address], [place], [id number], Progress Notes * Examination Category Sub-Category Detail Notes General Examination Heart: RSR Lungs: clear to auscultatio n Abdomen: bowel sounds present , soft and nontender General Appearance: NAD Chest: normal shape and exp ansion History and Physical Notes * HPI (History of Present Illness) Category Sub-Category Detail Notes Urology burning sensation flank pain hematuria
--- OUTSIDE RECORDS SUMMARY | 2024-04-03 16:35 | XMS_ITS ---
Author Name Unknown [facility] [address] [place] [id number] Care Team Providers Care Fur Tanner Name Role Phone Natalie Artis Primary Care Provider Estella Saenz Unavailable [phone] ALLERGIES No Known Allergies REASON FOR VISIT acid reflux MEDICATIONS Medication SIG (Take, Route, Frequency, Duration) Notes Start Date End Date Status Zithromax Z-Nj 250 MG 2 pills first [...] orally daily for 6 days 09/01/2023 Not-Taking Crestor 5 MG 1 tablet Orally Once a day for 30 day(s) 02/13/2024 Active Vistaril 25 MG 1 capsule at bedtime as needed Orally bid prn 02/13/2024 Not-Taking Cyclobenzaprine HCl 5 MG 1 tab(s) Orally three times a day as needed 09/01/2023 Not-Taking Clindamycin HCl 300 MG 1 capsule Orally every 8 hrs for 10 day(s) 09/06/2023 Not-Taking Albuterol Sulfate HFA 108 (90 Base) MCG/ACT 1 puff as needed Inhalation qid and q2h prn Not-Taking Spacer/Aero-Holding Chambers - as directed four times a day as needed 08/14/2023 Active Atenolol 25 MG 1 tab(s) orally once a day Active Aspirin 325 MG 1 tab(s) orally once a day Active Multiple Vitamin - 1 cap(s) orally once a day Active PROBLEMS Problem Type ICD Code Onset Dates Problem Status W/U Status Risk SNOMED Code Notes Problem Gastroesophageal reflux disease, unspecified whether esophagitis present (K21.9) Active confirmed [id number] VITAL SIGNS Weight 142.6 lbs 04/03/2024 Blood pressure systolic 130 mm Hg 04/03/20 24 Blood pressure diastolic 80 mm Hg 024 Heart Rate 65 /min 04/03/2024 Height 67 in 04/03/2024 BMI 22.33 kg/m2 04/03/2024 Encounters Encounter Location Date Provider Diagnosis [place] [address] [facility] [address] [place], [place] [id number] 04/03/2024 Estella Saenz Other chest pain R07 .89 and Gastroesophageal reflux disease, unspecified whether esophagitis present K21.9 ASSESSMENTS Encounter Date Diagnosis Assessment Notes Treatment Notes Treatment Clinical Notes 04/03/2024 Other chest pain (ICD-10 - R07.89) 04/03/2024 Gastroesophageal ref lux disease, unspecified whether esophagitis present (ICD-10 - K21.9) PLAN OF TREATMENT Pending Test Test Name Order Date EKG with rhythm strip 04/03/2024 H-Cardiac Enzymes 04/03/2024 Next Appt Details Provider Name:Estella cosme, 04/03/2024 03:45:00 PM, [address] [facility], [address], [place], [place], [id number], History and Physical Notes * HPI (History of Present Illness) Category Sub-Category Detail Notes Gastroenterology Acid Reflux
--- OUTSIDE RECORDS SUMMARY | 2024-04-03 16:36 | XMS_ITS | Patient Health Record ---
Author Name Unknown Organization [facility] Address [address] [facility] [address] [place] Wil[place] [id number] Care Team Providers Care Yeast Tender Name Role Phone Artis Estrada Primary Care Provider Merry Patton Unavailable [phone] Estella Saenz Unavailable [phone] ALLERGIES No Known Allergies RESULTS Component Value Reference Range Notes Urinalysis - Inhouse Reviewed date:09/15/2023 05:01:30 PM Interpretation: Performing Lab: Notes/Report: Color/Clarity clear Leuk tr Nitrite neg Urobili 3.2 Protein neg pH 6.0 Blood neg Sp. Gr. <=1.005 Ketone neg Bili neg Gluc neg bacteria WBC RBC TEN-UTI panel Reviewed date:11/07/2023 01:53:51 PM Interpretation:Test not performed Performing Lab: Notes/Report: Test not performed Mammogram Reviewed date:09/25/2023 05:10:37 PM Interpretation:Negative annual f/u Performing Lab: Notes/Report: Negative annual f/u result P-Pap Test Thin Prep Reviewed date:02/20/2024 12:02:42 PM Interpretation:Negative Performing Lab: Notes/Report: Pap Test Thin Prep Negative for Intraepithelial Lesion or Malignancy Source: Cervical LMP: 2020 Date Taken: 02/13/2024 Specimen Type: ThinPrep Vial Date Reported: 02/15/2024 Clinical Data: Cytotech: CASEY Fernandez(ASCP) Date Reported: 02/15/2024 Reviewed By: CASEY Nugent(ASCP) Specimen Adequacy: Satisfactory for evaluation Endocervical/transform ation zone component present General Categorization: NEGATIVE FOR INTRAEPITHELIAL LESION OR MALIGNANCY Interpretation/Result: Atrophy This specimen has been analyzed by the ThinPrep Imaging System, an interactive computer system which assists the lab in the screening of ThinPrep Pap Test slides. Following imaging, the slide was reviewed by a Lay Out Machine Operator and/or Pathologist. End of Report Technical services provided by [facility], [facility], d/b/a [address] , [place] [address] Mynor Bravo MD, Rental Management Trainee. Case reviewed and diagnosis rendered at [facility], [facility], d/b/a [address] , [place] [address] Mynor Bravo MD, Rental Management Trainee. CONFIDENTIAL P-Comprehensive Metabolic Pa naomi (CMP) Reviewed date:02/20/2024 12:02:17 PM Interpretation:cl 110, a/g 2.6 Performing Lab: Notes/Report: Test performed by [facility], [address] , [address], [place] [address] Augustine Cerna MD, Rental Management Trainee CLIA: [id number] Sodium 142 135-145 mEq/L Potassium 4.4 3.5-5.3 [...] date:02/20/2024 12:01:52 PM Interpretation: Performing Lab: Notes/Report: TEN-UTI panel Reviewed date:09/06/2023 05:08:54 PM Interpretation:Positive - Gardnerella Vaginalis Performing Lab: Notes/Report: Positive - Gardnerella Vaginalis Urinalysis - Inhouse Reviewed date:09/01/2023 04:45:33 PM Interpretation: Performing Lab: Notes/Report: Color/Clarity yellow/clear Leuk 1+ Nitrite Neg Urobili 3.2 Protein Neg pH 5.0 Blood Trace-intact Sp. Gr. 1.010 Ketone Neg Bili Neg Gluc Neg bacteria WBC RBC Ultrasound : Kidneys, left Reviewed date:08/28/2023 10:14:44 PM Interpretation:Normal Performing Lab: Notes/Report: Normal H-COVIDPANEL Reviewed date:08/14/2023 08:41:15 AM Interpretation: Performing Lab: Notes/Report: No Is this the 1st COVID test for the patient? No Does the patient have COVID symptoms? Yes Is the patient employed in healthcare? No Is patient an [facility] employee? N Is patient currently hospitalized? No Is patient currently in ICU? No Date of Symptom onset Is patient a resident in a congregate care setting? No ADENOQIA Not Detected NotDetected CORONAHKU1 Not Detected NotDetected [id number] Not Detected NotDetected [id number] Not Detected NotDetected ZDHJQZR39 Not Detected NotDetected METAPNEUMO Not Detected NotDetected RHINOENTER Detected NotDetected INFLUAPCR Not Detected NotDetected FLUAH1 Not Detected NotDetected [id number] Not Detected NotDetected INFLUAH3 Not Detected NotDetected INFLUB Not Detected NotDetected PARAINFLU1 Not Detected NotDetected PARAINFLU2 Not Detected NotDetected PARAINFLU3 Not Detected NotDetected PARAINFLU 4 Not Detected NotDetected RSVPCR Not Detected NotDetected COVIDHMH Not Detected NotDetected Effective 05/11/21, Positive covid results will no longer be called to the ordering physician. Infection control and the physician?s office will continue to report positive covid results to the local Health Department as required. This assay is for in vitro diagnostic use under FDA Emergency Use Authorization only. Negative results do not preclude infection with SARS CoV 2 virus and should not be the sole basis of a patient treatment/management or public health decision. Follow up testing should be performed according to the current CDC recommendations. BORDPERT Test not performed NotDetected CHLAMYDPNEUM Test not performed NotDetected MYCOPLASM Test not performed NotDetected H-CMP Reviewed date:08/14/2023 08:41:16 AM Interpretation: Performing Lab: Notes/Report: NA 139 136-145 mmol/L K 4.0 3.5-5.1 mmoL/L Delta: 3.3 on 08/10/23 CL 104 98-107 mmol/L CO2 28 22.0-30.0 mmol/L GAP 11.0 5-15 mEq/L BUN 8 7-17 mg/dl Delta: 13 on 08/10/23 CREATT 0.50 0.52-1.04 mg/dl Delta: 0.70 on 08/10/23 CRCLE 125 50-200 mL/min GFRAA 154 >60 ML/MIN Delta: 105 on 08/10/23 EGFR 128 >60 ml/min GLU 118 74-100 mg/dl CA 9.1 8.4-10.2 mg/dl BILIT 0.4 0.2-1.3 mg/dl AST 30 14-36 U/L ALT 28 12-78 U/L TP 7.5 6.3-8.2 g/dl ALB 4.5 3.5-5.0 g/dl GLOB 3.0 1.3-3.2 g/dL AGRATIO 1.5 1.1-1.8 ALP 149 38-126 U/L H-DDIMER Reviewed date:08/14/2023 08:41:16 AM Interpretation: Performing Lab: Notes/Report: DDIMER 0.65 0.0-0.5 ug/mL TEN-UTI panel Reviewed date:08/16/2023 10:05:22 AM Interpretation:Gardnerella vaginalis Positive Performing Lab: Notes/Report: Gardnerella vaginalis Positive Urinalysis - Inhouse Reviewed date:08/14/2023 11:13:07 AM Interpretation: Performing Lab: Notes/Report: Color/Clarity yellow/clear Leuk neg Nitrite neg Urobili 3.2 Protein neg pH 5.5 Blood trace-lysed Sp. Gr. 1.020 Ketone neg Bili neg Gluc neg bacteria WBC RBC CT scan : Abd & Pelvis with oral contrast only Reviewed date:08/23/2023 12:35:21 PM Interpretation:Sigmoid diverticulosis w/o evidence of diverticulitis Performing Lab: Notes/Report: Sigmoid diverticulosis w/o evidence of diverticulitis TEN-UTI panel Reviewed date:08/23/2023 01:29:26 PM Interpretation:Gardnerella vaginalis Positive Performing Lab: Notes/Report: Gardnerella vaginalis Positive CBC Fingerstick (in house) Reviewed date:08/18/2023 02:52:52 PM Interpretation: Performing Lab: Notes/Report: wbc 12.4 3.5 - 10 lym 26.2 15 - 50 mid 6.1 2 - 15 gran 67.7 35 - 80 rbc 4.64 3.5 - 5.5 hgb 14.1 11.5 - 16.5 hct 41.7 35 - 55 mcv 89.8 75 - 100 mch 30.4 25 - 35 mchc 33.8 31 - 38 plat 274 100 - 400 Urinalysis - Inhouse Reviewed date:08/18/2023 02:45:47 PM Interpretation: Performing Lab: Notes/Report: Color/Clarity yellow/clear Leuk trace Nitrite neg Urobili 3.2 Protein neg pH 5.5 Blood neg Sp. Gr. <=1.005 Ketone neg Bili neg Gluc neg bacteria WBC RBC CBC Fingerstick (in house) Reviewed date:08/08/2023 05:03:43 PM Interpretation: Performing Lab: Notes/Report: wbc 8.0 3.5 - 10 lym 20.8 15 - 50 mid 5.3 2 - 15 gran 73.9 35 - 80 rbc 4.36 3.5 - 5.5 hgb 13.4 11.5 - 16.5 hct 39.7 35 - 55 mcv 91.0 75 - 100 mch 30.7 25 - 35 mchc 33.7 31 - 38 plat 226 100 - 400 MEDICATIONS Medication SIG (Take, Route, Frequency, Duration) Notes Start Date End Date Status Vistaril 25 MG 1 capsule at bedtime as needed Orally bid prn 02/13/2024 Not-Taking Spacer/Aero-Holding Chambers - as directed four times a day as needed 08/14/2023 Active Crestor 5 MG 1 tablet Orally Once a day for 30 day(s) 02/13/2024 Active Atenolol 25 MG 1 tab(s) orally once a day Active Zithromax Z-Nj 250 MG 2 pills first day then one daily for 4 days orally as directed 08/08/2023 Not-Taking Aspirin 325 MG 1 tab(s) orally once a day Active Promethazine-DM 6.25-15 MG/5ML 5 ml as needed Orally every 6 hrs prn Not-Taking Multiple Vitamin - 1 cap(s) orally once a day Active Benzonatate 200 MG 1 capsule Orally Three times a day prn Not-Taking Cyclobenzaprine HCl 10 MG 1 tab orally t id prn for 30 days 01/19/2022 Not-Taking Medrol 4 MG as directed orally daily for 6 days 09/01/2023 Not-Taking Cyclobenzaprine HCl 5 MG 1 tab(s) Orally three times a day as needed 09/01/2023 Not-Taking Clindamycin HCl 300 MG 1 capsule Orally every 8 hrs for 10 day(s) 09/06/2023 Not-Taking Albuterol Sulfate HFA 108 (90 Base) MCG/ACT 1 puff as needed Inhalation qid and q2h prn Not-Taking IMMUNIZATIONS Vaccine Route Administration Date Status Comme nts COVID 19 Mily Unknown 12/05/2020 Administered COVID 19 Mily Unknown 07/24/2021 Administered Shingrix IM Intramuscular 02/13/2024 Administered Tetanus Tdap-Adacel (over 7yrs) IM Intramuscular 03/15/2011 Administered Tetanus Tdap-Adacel (over 7yrs) IM Intramuscular 02/13/2024 Administered SOCIAL HISTORY Sex Assigned At : Social History Observation Description Sex Assigned At Unknown PROBLEMS Problem Type ICD Code Onset Dates Problem Status W/U Status Risk SNOMED Code Notes Problem Mitral valve prolapse (424.0) Active confirmed Mitral valv e prolapse (710372431) Problem Panic disorder (300.01) Active confirmed Panic disorder (818391217) Problem Essential (primary) hypertension (I10) Active confirmed 61590468 Problem Insomnia (G47.00) Active confirmed Inso mnia (760403653) Problem HTN (hypertension) (I10) Active confirmed Hypertension (46460510) Problem Menopausal and perimenopausal disorder (N95.9) Active confirmed 679162521 Problem Abnormal mammogram (R92.8) Active confirmed Abnormal mammog itz (665012314) Problem Anxiety (F41.9) Active confirmed Anxiet y (23197673) Problem Menopausal disorder (N95.9) Active confirmed Menopausal and postmenopausal disorders (164940175) Problem COPD exacerbation (J44.1) Active confirmed 116090379 Problem Other insomnia (G47.09) Active confirmed 830244187 Problem Age-related osteoporosis without current pathological fracture (M81.0) Active confirmed Age-related osteoporosis (762742581) Problem Gastroesophageal reflux disease without esophagitis (K21.9) Active confirmed 659541441 Problem Gastroesophageal reflux disease, esophagitis presence not specified (K21.9) Active confirmed 917643635 Problem Sleep disorder (G47.9) Active confirmed Sleep disorder (79137978) Problem Hyperlipidemia, unspecified hyperlipidemia type (E78.5) Active confirmed 52344044 Problem Smoker (F17.200) Active confirmed Smoke r (37381059) Problem Personal history of smoking (Z87.891) Active confirmed [id number] Problem Bladder spasm (N32.89) Active confirmed Bladder spasm (568398209) Problem Gastroesophageal reflux disease, unspecified whether esophagitis present (K21.9) Active confirmed 790293292 Problem Hypercholesteremia (E78.00) Active confirmed Pure hypercholesterolemia (284196739) VITAL SIGNS Heart Rate 65 /min 04/03/2024 Blood pressure diastolic 80 mm Hg 04/03/2024 Height 67 in 04/03/2024 Blood pressure systolic 130 mm Hg 04/03/2024 Weight 142.6 lbs 04/03/2024 BMI 22.33 kg/m2 04/03/2024 Encounters Encounter Location Date Provider Diagnosis [facility] [address] [facility] [address] [place], [place] [id number] 08/08/2023 Merry Patton Bronchitis J40 [facility] [address] [place], [place] [id number] 08/14/2023 Artis Thiells Bronchitis J40 ; Microscopic hematuria R31.29 and Dysuria R30.0 [facility] [address] [place], [place] [id number] 08/16/2023 Estella Saenz [facility] [address] [facility] [address] [place] [id number] 08/16/2023 Estella Crowdy [facility] [address] [place], [place] [id number] 08/18/2023 Estella Crowdy Bronchitis J40 ; Rhinovirus B34.8 ; Dysuria R30.0 and Left lower quadrant pain R10.32 [facility] [address] [place], [place] [id number] 08/21/2023 Artis Thiells [facility] [address] [facility] [address] [place], [place] [id number] 08/23/2023 Estella Crowdy Kidney cysts N28.1 [facility] [address] [place], [place] [id number] 08/24/2023 Estella Crowdy [facility] [address] [place] [id number] 08/28/2023 Estella Crowdy [facility] [address] [place] [id number] 09/01/2023 Estella Crowdy Dysuria R30.0 ; Left lower quadrant pain R10.32 and Back muscle spasm M62.830 [facility] [address] [facility] [address] [place] [id number] 09/05/2023 Estella Crowdy [facility] [address] [facility] [address] [place] [id number] 09/15/2023 Estella Crowdy Dysuria R30.0 and Recurrent UTI N39.0 [facility] [address] [facility] [address] [place], [place] [id number] 02/13/2024 Merry Patton Encounter for vaccin ation Z23 ; Smoker F17.200 ; Hypercholesteremia E78.00 ; Pap smear for cervical cancer screening Z12.4 ; Anxiety F41.9 ; Insomnia G47.00 and Palpitations R00.2 [facility] [address] [facility] [address] [place] [id number] 04/03/2024 Estella Crowdy Other chest pain R07 .89 and Gastroesophageal reflux disease, unspecified whether esophagitis present K21.9 ASSESSMENTS Encounter Date Diagnosis Assessment Notes Treatment Notes Treatment Clinical Notes 08/08/2023 Bronchitis (ICD-10 - J40) fluids, rest, supportive measures for fever/symptom relief, No Smoking 08/14/2023 Bronchitis (ICD-10 - J40) Hospital records reviewed during office visit today 08/14/2023 Microscopic hematuri a (ICD-10 - R31.29) 08/18/2023 Bronchitis (ICD-10 - J40) Improving slowly. Will continue to monitor oxygen levels. Will remain off work until f/u next week. Will see if she can get a sputum sample for culture. 08/18/2023 Rhinovirus (ICD-10 - B34.8) 08/23/2023 Kidney cysts (ICD-10 - N28.1) 09/01/2023 Dysuria (ICD-10 - R30.0) Patel stout recheck a TEN panel to see if abx have cleared the infection. 09/01/2023 Left lower quadrant pain (ICD-10 - R10.32) Improved. 09/15/2023 Dysuria (ICD-10 - R30.0) Patel stout recheck a TEN panel to see if abx have cleared the infection. 09/15/2023 Recurrent UTI (ICD-1 0 - N39.0) 02/13/2024 Smoker (ICD-10 - F17.200) 02/13/2024 Encounter for vaccination (ICD-10 - Z23) 04/03/2024 Other chest pain (IC D-10 - R07.89) 04/03/2024 Gastroesophageal ref lux disease, unspecified whether esophagitis present (ICD-10 - K21.9) 02/13/2024 Hypercholesteremia (ICD-10 - E78.00) discussed low fat /chol diet; will try Crestor and repeat lipids in 4-6 months 09/01/2023 Back muscle spasm (ICD-10 - M62.830) 08/18/2023 Dysuria (ICD-10 - R30.0) Patel stout recheck a TEN panel to see if abx have cleared the infection. 08/14/2023 Dysuria (ICD-10 - R30.0) 08/18/2023 Left lower quadrant pain (ICD-10 - R10.32) Patient could have diverticulitis. Discussed with Dr. Estrada. Will need a CT. 02/13/2024 Pap smear for cervic al cancer screening (ICD-10 - Z12.4) 02/13/2024 Anxiety (ICD-10 - F41.9) 02/13/2024 Insomnia (ICD-10 - G47.00) 02/13/2024 Palpitations (ICD-10 - R00.2) 08/08/2023 Other pt will RTO for fasing labs to include CMP and lipids for screening PLAN OF TREATMENT Pending Test Test Name Order Date EKG with rhythm strip 04/03/2024 H-Cardiac Enzymes 04/03/2024 Next Appt Details Provider Name:Estella Cleveland carmelina, 04/03/2024 03:45:00 PM, [address], [place], [place], [id number], Insurance Providers Payer Name Payer Address Payer Phone Subscriber Number Group Number Insured Name Patient Relationship to Insured Coverage Start Date Coverage End Date [facility] [address] [place] [address] [id number] IMANI VILLAVICENCIO Self - patient is the insured MEDICATIONS ADMINISTERED Medication Instructions Date of Administration Dosage Notes Depo- Medrol 40 mg/ml 09/25/2013 1 cm3 Depo- Medrol 40 mg/ml 07/27/2017 1.5 mL Dexamethasone 10/15/2005 1 cm3 Dexamethasone 08/27/2009 1 cm3 Dexamethasone 08/04/2012 1 mL Dexamethasone 09/17/2013 Dexamethasone 06/27/2017 1 mL Dexamethasone 09/16/2019 1 mL Dexamethasone 12/11/2019 1 mL Dexamethasone 08/08/2023 1 mL MEDICAL (GENERAL) HISTORY Medical History History ICD Code Mitral Valve Prolapse Scoliosis Esophageal Reflux Surgical History Surgery Date(Month/Year) Appendectomy Cholecystectomy 06/23/2014 Hospitalization History Reason Date(Month/Year) Gall Bladder- [facility] 06/06/2014 Palpatations- [facility] ER 09/2015
--- NOTE | 2024-04-03 16:53 | ECG_ITS ---
APPROVED REPORT Exam: Resting ECG HR:60 bpm ECG Measurements Heart Rate 60 AXES SC 163 P 76 QRSd 87 QRS 81 QT 390 T 78 QTc 391 Conclusion SINUS RHYTHM POSSIBLE RIGHT VENTRICULAR CONDUCTION DELAY [RSR (QR) IN V1/V2] BORDERLINE ECG UNCONFIRMED REPORT Electronically signed by : Morales Gordon MD 04/06/2024 10:55:15
[2024-04-03 17:02] LABS: Creatine Kinase 80 U/L (30-135)
[2024-04-03 17:13] LABS: CKMB Relative Index 1.3 U/L (0-4.0)
[2024-04-03 17:19] LABS: Troponin I < 0.01 ng/ml (0.00-0.034)
== END 2024-04-03 23:59 | disposition home or self-care (01) ==
LOC: LAB 16:34
PROVIDERS: PCP Family Medicine; Visit Provider Physician Assistant
DX: R07.89 Other chest pain (principal)
CPT/HCPCS: 36415; 82550; 82553; 84484; 93005

== ENCOUNTER 2024-07-15 14:54 | Outpatient (CLI) | payer BC, SELFPAY ==
[2024-07-15 15:39] LABS: Basophils # 0.1 K/mm3 (0-0.2); Basophils % 0.8 % (0.1-2.0); Eosinophils # 0.2 K/mm3 (0.0-0.4); Eosinophils % 2.1 % (0.1-12.0); Hemoglobin 13.2 g/dL (12.2-16.2); Lymphocytes # 2.2 K/mm3 (0.7-4.5); Lymphocytes % 25.3 % (10-50); Mean Corpuscular HGB Conc 33.9 g/dL (31.8-35.4); Mean Corpuscular Hemoglobin 30.5 pg (27.0-31.2); Mean Platelet Volume 7.1 fl (7.4-10.4); Monocytes # 0.6 K/mm3 (0.1-1.0); Monocytes % 6.4 % (1.7-9.3); Neutrophils # 5.8 K/mm3 (1.8-7.8); Neutrophils % 65.5 % (37.0-80.0); Platelet Count 251 K/mm3 (142-424); Red Blood Count 4.33 M/mm3 (4.20-5.40); Red Cell Distribution Width 13.4 % (11.5-17.5); White Blood Count 8.8 K/mm3 (4.8-10.8)
== END 2024-07-15 23:59 | disposition home or self-care (01) ==
LOC: LAB 10-21 09:32
PROVIDERS: Visit Provider Family Medicine
DX: J06.9 Acute upper respiratory infection, unspecified (principal)
CPT/HCPCS: 85025

== ENCOUNTER 2024-08-14 07:45 | Outpatient (CLI) | payer SELFPAY ==
--- NOTE | 2024-08-14 07:46 | CT_ITS ---
APPROVED REPORT Rabbit Dresser: CLINICAL INDICATION Risk stratification TECHNIQUE Image Acquisition: A 128 slice MDCT scanner (enStagea View) was used for data acquisition. A noncontrast coronary calcium scan was performed. A CT attenuation threshold of 130 Hounsfield units (HU) was used for the detection of calcium in contiguous voxels of 1 sq mm in area to be counted as individual lesions. A tube voltage of 120 KVp was used. The patient received no medications prior to the coronary calcium CT. Image Reconstruction Transaxial images were reconstructed at 0.67 mm slide thickness. Data was reviewed interactively on an advanced workstation capable of 2 and 3-dimensional displays in all conventional reconstruction formats, including multiplanar reformations, maximum intensity projections, curved multiplanar reformations, and volume rendered reconstructions. When applicable, selected routine images describing the relevant coronary anatomy and pathology were saved and sent to PACS. Complications None Technical Quality Overall image quality was good. Total DLP (Dose-Length Product) is 179.9 mGy-cm. The reported value represents the total of one or more individual components during the CT acquisition of this date and at this time, and as such, the same value may appear in more than one CT report depending on the interpreting/reporting physicians. COMPARISON None FINDINGS CT Coronary Calcium Scoring LMA (Left Main Artery) = 0 LAD (Left Anterior Descending) = 0 LCX (Left Coronary Circumflex) = 0 RCA (Right Coronary Artery) = 0 Total Calcium Score = 0 using the AJ-130 method. There is mild calcification incidentally noted in the descending thoracic aorta. IMPRESSION -Coronary artery calcification is absent. -Total Calcium Score (Agatston Score) = 0 using the AJ-130 method. -Mild calcification incidentally noted in the descending thoracic aorta. The interpretation of the calcium heart score is based on the following continuum*: 0 = no calcified plaque detected (risk of coronary artery disease is very low ??? less than 5%) 1-10 = calcium detected in extremely minimal levels (risk of coronary diseases is still low ??? less than 10%) 11-100 = mild levels of plaque detected with certainty (mild or minimal narrowing of heart arteries is likely) 101-400 = definite,at least moderate levels of plaque detected (relatively high risk of a heart attack within 3-5 years) >401-999 = extensive levels of plaque detected (high risk of heart attack, high levels of vascular disease are present, high likelihood of at least one significant coronary narrowing) *The calcium heart score quantifies the burden of coronary calcification/plaque in the coronary arteries. The calcium heart score does not evaluate the presence or the burden of non-calcified (i.e. soft) plaque. The coronary and cardiac findings of this Coronary Calcium CT were reviewed, reported, and signed by Sid Ruiz MD (Hoop Riveting Machine Operator Helper). Conclusion Electronically signed by : Faye Ruiz MD 08/19/2024 12:27:09
== END 2024-08-14 23:59 | disposition home or self-care (01) ==
LOC: RAD 07:46
PROVIDERS: PCP Family Medicine; Visit Provider Internal Medicine
DX: Z13.6 Encounter for screening for cardiovascular disorders (principal)
CPT/HCPCS: 75571

== ENCOUNTER 2024-10-07 14:41 | Outpatient (CLI) | payer BC, SELFPAY ==
--- NOTE | 2024-10-07 14:44 | MM_ITS ---
PROCEDURE INFORMATION: Exam: MG Bilateral Screening 3D Mammography Exam date and time: 10/07/2024 2:34 PM Age: 59 years old Clinical indication: Screening examination TECHNIQUE: Imaging protocol: Bilateral Screening tomosynthesis and 2D mammography including computer-aided detection (CAD) when performed. COMPARISON: 1. MG MM DIG SCREENING MAMM BI W/CAD 09/19/2023 3:14 PM 2. MG MM DIG SCREENING MAMM BI W/CAD 09/15/2022 9:44 AM FINDINGS: MAMMOGRAPHY: Breast composition: The breasts are heterogeneously dense, which may obscure small masses. Mass: None. Architectural distortion: None. Calcifications: No suspicious calcifications. Asymmetric density: None. Skin thickening: None. Axillary adenopathy: None. IMPRESSION: No mammographic evidence of malignancy. Annual screening is recommended unless otherwise clinically indicated. ASSESSMENT: BI-RADS Category 1: Negative.
== END 2024-10-07 23:59 | disposition home or self-care (01) ==
LOC: RAD 14:42
PROVIDERS: PCP Family Medicine; Visit Provider Family Medicine
DX: Z12.31 Encounter for screening mammogram for malignant neoplasm of breast (principal)
CPT/HCPCS: 77063; 77067